=== PATIENT | female | born 1990 | race Two or more races ===

== ENCOUNTER 2022-12-17 09:53 | Outpatient (OUT) | payer BC, SELFPAY ==
[2022-12-17 11:02] LABS: Thyroid Stimulating Hormone 1.601 uIU/mL (0.358-3.740)
[2022-12-18 06:08] LABS: HIV Ab/p24 Ag Screen Non Reactive (Non Reactive)
== END 2022-12-17 09:54 ==
LOC: LAB 09:57
PROVIDERS: PCP Nurse Practitioner Primary Care; Visit Provider Nurse Practitioner Primary Care
DX: E06.3 Autoimmune thyroiditis (principal)
CPT/HCPCS: 36415; 84443; 87389

== ENCOUNTER 2023-04-16 10:16 | Outpatient (OUT) | payer BC, SELFPAY ==
[2023-04-16 10:50] LABS: Basophils Absolute Auto 0.1 10^3/uL (0.0-0.1); Eosinophils Absolute Auto 0.2 10^3/uL (0.0-0.7); Eosinophils Percent Auto 2.3 % (0.9-7.0); Hematocrit 37.1 % (36.0-48.0); Hemoglobin 11.9 g/dL (12.0-16.0); Immature Granulocytes Abs Auto 0.03 10^3/uL (0.00-0.03); Immature Granulocytes Pct Auto 0.4 % (0.0-0.5); Lymphocytes Absolute Auto 2.2 10^3/uL (1.2-3.8); Lymphocytes Percent Auto 26.2 % (20.5-60.0); Mean Corpuscular HGB Conc 32.1 g/dL (29.9-35.2); Mean Corpuscular Hemoglobin 27.4 pg (26.7-34.0); Mean Corpuscular Volume 85.3 fL (81.0-99.0); Mean Platelet Volume 8.4 fL (9.5-13.5); Monocytes Absolute Auto 0.6 10^3/uL (0.3-0.8); Monocytes Percent Auto 7.2 % (1.7-12.0); Neutrophils Absolute Auto 5.3 10^3/uL (1.4-6.5); Neutrophils Percent Auto 62.9 % (43.0-75.0); Platelet Count 484 10^3/uL (150-450); Red Blood Count 4.35 10^6/uL (4.20-5.40); Red Cell Distribution Width 13.6 % (11.0-15.0); White Blood Count 8.4 10^3/uL (4.0-11.0)
[2023-04-16 11:24] LABS: Alanine Aminotransferase 15 U/L (14-59); Albumin Level 3.6 g/dL (3.4-5.0); Alkaline Phosphatase 80 U/L (46-116); Anion Gap 11.7; Aspartate Amino Transferase 22 U/L (15-37); BUN Creatinine Ratio 15.4; Bilirubin Total 0.4 mg/dL (0.2-1.0); Calcium 8.8 mg/dL (8.5-10.1); Carbon Dioxide 23.7 mmol/L (21.0-32.0); Chloride 106 mmol/L (98-107); Chol HDL Ratio 2.7; Cholesterol 162 mg/dL (<=200); Estimated GFR (African America >60 (>=60); Estimated GFR (Non-African Ame >60 (>=60); Globulin 3.5 g/dL; Glucose 89 mg/dL (74-106); HDL Cholesterol 59 mg/dL (40-60); LDL Cholesterol Calculated 85.4 mg/dL; Potassium 4.4 mmol/L (3.5-5.1); Sodium 137 mmol/L (136-145); Total Protein 7.1 g/dL (6.4-8.2); Triglycerides 88 mg/dL (<=150); VLDL CHOLESTEROL 17.6 mg/dL
[2023-04-16 11:26] LABS: Estimated Average Glucose 100 mg/dL; Glycohemoglobin A1C 5.1 % (4.5-6.2)
[2023-04-17 06:09] LABS: HIV Ab/p24 Ag Screen Non Reactive (Non Reactive)
== END 2023-04-16 10:17 | disposition home or self-care (01) ==
PROVIDERS: PCP Nurse Practitioner Primary Care; Visit Provider Nurse Practitioner Primary Care
DX: Z00.00 Encounter for general adult medical examination without abnormal findings (principal); Z13.6 Encounter for screening for cardiovascular disorders; Z11.4 Encounter for screening for human immunodeficiency virus [HIV]
CPT/HCPCS: 36415; 80053; 80061; 83036; 85025; 87389

== ENCOUNTER 2023-09-17 09:20 | Outpatient (OUT) | payer BC, SELFPAY ==
[2023-09-17 10:30] LABS: Thyroid Stimulating Hormone 7.713 uIU/mL (0.358-3.740)
== END 2023-09-17 09:21 | disposition home or self-care (01) ==
LOC: LAB 09:22
PROVIDERS: PCP Nurse Practitioner Primary Care; Visit Provider Nurse Practitioner Primary Care
DX: E06.3 Autoimmune thyroiditis (principal)
CPT/HCPCS: 36415; 84443

== ENCOUNTER 2023-11-26 09:21 | Outpatient (OUT) | payer BC, SELFPAY ==
[2023-11-26 11:13] LABS: TSH W/ REFLEX FT4 3.288 uIU/mL (0.358-3.740)
== END 2023-11-26 09:22 | disposition home or self-care (01) ==
LOC: LAB 09:23
PROVIDERS: PCP Nurse Practitioner; Visit Provider Nurse Practitioner
DX: E06.3 Autoimmune thyroiditis (principal)
CPT/HCPCS: 36415; 84443

== ENCOUNTER 2024-01-06 09:38 | Outpatient (OUT) | payer BC, SELFPAY ==
--- OUTSIDE RECORDS SUMMARY | 2024-01-06 09:51 | XMS_ITS | CCD ---
Author Organization [facility] Care Team Providers Care Identity Management Developer Name Role Phone SHAMMO, RED Admitting Unavailable SHAMMO, RED Primary Care Unavailable SHAMMO, RED Attending Unavailable ZIEBER, DR ANGEL LUIS Gloria Consulting Unavailable SHAMMO, RED Admitting Unavailable SHAMMO, RED Primary Care Unavailable SHAMMO, RED Attending Unavailable SHAMMO, RDE Consulting Unavailable SHAMMO, RED Admitting Unavailable SHAMMO, RED Primary Care Unavailable SHAMMO, RED Consulting Unavailable SHAMMO, RED Attending Unavailable MISC, DOCTOR Admitting Unavailable MISC, DR BROWN Consulting Unavailable MISC, DOCTOR Attending Unavailable SHAMMO, RED Admitting Unavailable SHAMMO, RED Primary Care Unavailable SHAMMO, RED Consulting Unavailable SHAMMO, RED Attending Unavailable SHAMMO, RED Admitting Unavailable SHAMMO, RED Primary Care Unavailable SHAMMO, RED Consulting Unavailable SHAMMO, RED Attending Unavailable SHAMMO, RED Admitting Unavailable ZIEBER, DR ANGEL LUIS Gloria Consulting Unavailable SHAMMO, RED Primary Care Unavailable SHAMMO, RED Attending Unavailable SHAMMO, RED Consulting Unavailable Shammo, MANAGER QA- Red T Primary Care Provider DO Wendy Frazier Emergency Provider Wendy Frazier Attending Unavailable Wendy Frazier Admitting Unavailable Shammo, Red T Primary Care Unavailable Allergies Allergy Classification Reported Allergen(s) Allergy Type Date of Onset Reaction(s) Facility (1 source) Pseudoephedrine Drug Allergy [address] [place] [address] Repository Medications Current Medications Medication Drug Class(es) Dates Sig (Normalized) Sig (Original) levothyroxine sodium 0.088 mg oral tablet (1 source) l-Thyroxine Start: 08-11-2023 take 88 ug by mouth once daily Levothyroxine Active 88 MCG PO Daily August 11, 2023 12:00am ondansetron 4 mg oral tablet (1 source) Serotonin-3 Receptor Antagonist Start: 08-11-2023 take 4 mg by mouth every eight hours Ondansetron Hcl Active 4 MG PO Q8H 20 5 August 11, 2023 12:00am rizatriptan 5 mg oral tablet (1 source) Serotonin-1b and Serotonin-1d Receptor Agonist Start: 08-11-2023 Rizatriptan Active 5 MG PO As Directed August 11, 2023 12:00am topiramate 50 mg oral tablet (1 source) Start: 08-11-2023 take 50 mg by mouth every twelve hours Topiramate Active 50 MG PO Q12H August 11, 2023 12:00am Problems Active Problems Problem Classification Problem Date Documented Da te Episodic/Chronic Abdominal pain (1 source) Abdominal pain; Translations: [Unspecified abdominal pain] 08-11-2023 Episodic Nausea and vomiting (1 source) Nausea and vomiting; Translations: [Nausea with vomiting, unspecified] 08-11-2023 Episodic Other gastrointestinal disorders (1 source) Diarrhea; Translations: [Diarrhea, unspecified] 08-11-2023 Episodic Other skin disorders (4 sources) Localized swelling, mass and lump, neck; Translations: [LOCALIZED SWELLING MASS AND LUMP NECK] Onset: 11-06-2022 Episodic Thyroid disorders (12 sources) Nontoxic single thyroid nodule; Translations: [Autoimmune thyroiditis] Onset: 04-03-2022 Chronic Unclassified (3 sources) CONTACT W/AND (SUSP) EXPOS COVID-19; Translations: [CONTACT W/AND (SUSP) EXPOS COVID-19] Onset: 07-10-2022 Unclassified (1 source) Diarrhea, unspecified; Translations: [Diarrhea, unspecified] Onset: 08-11-2023 Past or Other Problems Problem Classification Problem Date Documented Date Episodic/Chronic Immunizations and screening for infectious disease (1 source) Encounter for screening for other viral diseases; Translations: [ENC SCREENING FOR OTH VIRAL DZ] Onset: 04-17-2022 Episodic Other screening for suspected conditions (not mental disorders or infectious disease) (1 source) Encounter for screening for cardiovascular disorders; Translations: [ENC FOR SCREENING FOR CV DISORDERS] Onset: 04-17-2022 Episodic Other upper respiratory infections (1 source) Acute upper respiratory infection, unspecified; Translations: [ACUTE UP RESPIRATORY INFECTION UNS] Onset: 07-10-2022 Episodic Residual codes; unclassified (1 source) Other general symptoms and signs; Translations: [OTHER GENERAL SYMPTOMS AND SIGNS] Onset: 06-29-2022 Episodic Unclassified (1 source) CONTACT W/AND (SUSP) EXPOS COVID-19; Translations: [CONTACT W/AND (SUSP) EXPOS COVID-19] Onset: 07-03-2022 Results Test Name Value Interpretation Reference Range Facility Alanine aminotransferase [En zymatic activity/volume] in Serum or PlasmaOrdered By: Wendy Frazier on 08-11-2023 ALT [Catalytic activity/Vol] 9 U/L 7-52 [facility] Albumin [Mass/volume] in Ser um or Plasma by Bromocresol green (BCG) dye binding methoOrdered By: Wendy Frazier on 08-11-2023 Albumin BCG dye [Mass/Vol] 4.5 g/dL 3.5-5.7 [facility] Alkaline phosphatase [Enzyma tic activity/volume] in Serum or PlasmaOrdered By: Wendy Frazier on 08-11-2023 ALP [Catalytic activity/Vol] 86 U/L 34-104 [facility] Aspartate aminotransferase [ Enzymatic activity/volume] in Serum or PlasmaOrdered By: Wendy Frazier on 08-11-2023 AST [Catalytic activity/Vol] 12 U/L 13-39 [facility] Basic Metabolic Panelon 07-15 Anion gap [Moles/Vol] 10.1 mmol/L Normal 6.0-15.0 [facility] Comment on above: Performed By: #### H EPATIC, CBC, BMP, LIPASE, HCGQUAL #### [facility] [address] [place] [address] [place] Calcium [Mass/Vol] 9.6 mg/dL Normal 8.6-10.3 [facility] Comment on above: Performed By: #### H EPATIC, CBC, BMP, LIPASE, HCGQUAL #### [facility] [address] [place] [id number] [place] Chloride [Moles/Vol] 109 mmol/L High 98-107 [facility] Comment on above: Performed By: #### H EPATIC, CBC, BMP, LIPASE, HCGQUAL #### [address] CO2 [Moles/Vol] 21.5 mmol/L Normal 21.0-31.0 [facility] Comment on above: Performed By: #### H EPATIC, CBC, BMP, LIPASE, HCGQUAL #### [address] Creatinine [Mass/Vol] 0.75 mg/dL Normal 0.60-1.20 [facility] Comment on above: Performed By: #### H EPATIC, CBC, BMP, LIPASE, HCGQUAL #### [address] Creatinine Clr Calc Pharmacy 130.05 [facility] Comment on above: Performed By: #### H EPATIC, CBC, BMP, LIPASE, HCGQUAL #### [address] GFR/1.73 sq M.predicted MDRD (S/P/Bld) [Vol rate/Area] mL/min/{1.73_m2} [facility] Comment on above: Performed By: #### H EPATIC, CBC, BMP, LIPASE, HCGQUAL #### [address] Glucose [Mass/Vol] 92 mg/dL Normal 70-100 [facility] Comment on above: Result Comment: [place] Glucose Reference Range is dependent on time and content of last meal. Glucose of more than 200 mg/dL in a nonstressed, ambulatory subject supports the diagnosis of Diabetes Mellitus. ADA recommended reference range Performed By: #### H EPATIC, CBC, BMP, LIPASE, HCGQUAL #### [address] Potassium [Moles/Vol] 4.6 mmol/L Normal 3.5-5.1 [facility] Comment on above: Performed By: #### H EPATIC, CBC, BMP, LIPASE, HCGQUAL #### [facility] [address] [place] [id number] [place] Sodium [Moles/Vol] 136 mmol/L Normal 136-145 [facility] Comment on above: Performed By: #### H EPATIC, CBC, BMP, LIPASE, HCGQUAL #### [facility] [address] [place] [id number] [facility] Urea nitrogen [Mass/Vol] 11 mg/dL Normal 7-25 [facility] Comment on above: Performed By: #### H EPATIC, CBC, BMP, LIPASE, HCGQUAL #### [facility] [address] Basophils Auto (Bld) [#/Vol] Ordered By: Wendy Frazier on 08-11-2023 Basophils (Bld) [#/Vol] 0.1 10*3/uL 0.0-0.2 [facility] Basophils/100 WBC Auto (Bld) Ordered By: Wendy Frazier on 08-11-2023 Basophils/100 WBC (Bld) 1.1 % . [facility] Bilirubin Test strip Ql (U)O rdered By: Wendy Frazier on 08-11-2023 Bilirubin Ql (U) Negative Negative [facility] Bilirubin.direct [Mass/volum e] in Serum or PlasmaOrdered By: Wendy Frazier on 08-11-2023 Bilirubin.direct [Mass/Vol] 0.10 mg/dL 0.03-0.18 [facility] Bilirubin.total [Mass/volume ] in Serum or PlasmaOrdered By: Wendy Frazier on 08-11-2023 Bilirubin [Mass/Vol] 0.3 mg/dL 0.3-1.0 [facility] Calcium [Mass/volume] in Ser um or PlasmaOrdered By: Wendy Frazier on 08-11-2023 Calcium [Mass/Vol] 9.6 mg/dL 8.6-10.3 [facility] Carbon dioxide, total [Moles /volume] in Serum or PlasmaOrdered By: Wendy Frazier on 08-11-2023 CO2 [Moles/Vol] 21.5 mmol/L 21.0-31.0 [facility] Chloride [Moles/volume] in S rodolfo or PlasmaOrdered By: Wendy Frazier on 08-11-2023 Chloride [Moles/Vol] 109 mmol/L 98-107 [facility] Choriogonadotropin.beta subu nit [Units/volume] in Serum or PlasmaOrdered By: Wendy Frazier on 08-11-2023 HCG.beta subunit Qn Negative [facility] Color Auto (U)Ordered By: Balaji Frazier on 08-11-2023 Color (U) Yellow Yellow [facility] Complete Blood Count Auto Di ffon 08-11-2023 Basophils (Bld) [#/Vol] 0.1 10*3/uL Normal 0.0-0.2 [facility] Comment on above: Result Comment: PERF ORMED BY: [place] [address] PATHOLOGIST BOARD FINISHER GLADYS RUBY M.D. Performed By: #### H EPATIC, CBC, BMP, LIPASE, HCGQUAL #### [address] Basophils/100 WBC (Bld) 1.1 % Normal . [facility] Comment on above: Performed By: #### H EPATIC, CBC, BMP, LIPASE, HCGQUAL #### [address] Eosinophils (Bld) [#/Vol] 0.2 10*3/uL Normal 0.0-0.45 [facility] Comment on above: Performed By: #### H EPATIC, CBC, BMP, LIPASE, HCGQUAL #### [address] Eosinophils/100 WBC (Bld) 1.3 % Normal . [facility] Comment on above: Performed By: #### H EPATIC, CBC, BMP, LIPASE, HCGQUAL #### [address] Erythrocyte distribution width (RBC) [Ratio] 14.1 % Normal 11.9-15.3 [facility] Comment on above: Performed By: #### H EPATIC, CBC, BMP, LIPASE, HCGQUAL #### [address] Hematocrit (Bld) [Volume fraction] 40.6 % Normal 34.0-46.4 [facility] Comment on above: Performed By: #### H EPATIC, CBC, BMP, LIPASE, HCGQUAL #### [address] Hemoglobin (Bld) [Mass/Vol] 13.3 g/dL Normal 11.8-15.4 [facility] Comment on above: Performed By: #### H EPATIC, CBC, BMP, LIPASE, HCGQUAL #### [address] Lymphocytes (Bld) [#/Vol] 1.8 10*3/uL Normal 1.00-4.8 [facility] Comment on above: Performed By: #### H EPATIC, CBC, BMP, LIPASE, HCGQUAL #### [address] Lymphocytes/100 WBC (Bld) 13.3 % Normal . [facility] Comment on above: Performed By: #### H EPATIC, CBC, BMP, LIPASE, HCGQUAL #### [address] MCH (RBC) [Entitic mass] 27.2 pg Normal 24.7-34.3 [facility] Comment on above: Performed By: #### H EPATIC, CBC, BMP, LIPASE, HCGQUAL #### [address] MCV (RBC) [Entitic vol] 82.9 fL Normal 80-100 [facility] Comment on above: Performed By: #### H EPATIC, CBC, BMP, LIPASE, HCGQUAL #### [address] Mean Corpuscular HGB Conc 32.9 g/dL Normal 32.0-35.0 [facility] Comment on above: Performed By: #### H EPATIC, CBC, BMP, LIPASE, HCGQUAL #### [address] Monocytes (Bld) [#/Vol] 0.9 10*3/uL High 0.0-0.8 [facility] Comment on above: Performed By: #### H EPATIC, CBC, BMP, LIPASE, HCGQUAL #### [address] Monocytes/100 WBC (Bld) 16.34 % Normal 0.00-20.00 [facility] Comment on above: Performed By: #### H EPATIC, CBC, BMP, LIPASE, HCGQUAL #### [address] Monocytes/100 WBC (Bld) 7.0 % Normal . [facility] Comment on above: Performed By: #### H EPATIC, CBC, BMP, LIPASE, HCGQUAL #### [address] Neutrophils (Bld) [#/Vol] 10.3 10*3/uL High 1.8-7.7 [facility] Comment on above: Performed By: #### H EPATIC, CBC, BMP, LIPASE, HCGQUAL #### [address] Neutrophils/100 WBC (Bld) 77.3 % Normal . [facility] Comment on above: Performed By: #### H EPATIC, CBC, BMP, LIPASE, HCGQUAL #### [address] NRBC% 0.1 /100{WBC} Normal 0-0.5 [facility] Comment on above: Performed By: #### H EPATIC, CBC, BMP, LIPASE, HCGQUAL #### [address] Platelet mean volume (Bld) [Entitic vol] 6.7 fL Normal 6.3-10.7 [facility] Comment on above: Performed By: #### H EPATIC, CBC, BMP, LIPASE, HCGQUAL #### [facility] [address] Platelets (Bld) [#/Vol] 560 10*3/uL High 150-450 [facility] Comment on above: Performed By: #### H EPATIC, CBC, BMP, LIPASE, HCGQUAL #### [facility] [address] RBC (Bld) [#/Vol] 4.90 10*6/uL Normal 3.60-5.00 [facility] Comment on above: Performed By: #### H EPATIC, CBC, BMP, LIPASE, HCGQUAL #### [facility] [address] WBC (Bld) [#/Vol] 13.2 10*3/uL High 3.8-11.6 [facility] Comment on above: Performed By: #### H EPATIC, CBC, BMP, LIPASE, HCGQUAL #### [facility] [address] Creatinine [Mass/volume] in Serum or PlasmaOrdered By: Wendy Frazier on 08-11-2023 Creatinine [Mass/Vol] 0.75 mg/dL 0.60-1.20 [facility] Eosinophils Auto (Bld) [#/Vo l]Ordered By: Wendy Frazier on 08-11-2023 Eosinophils (Bld) [#/Vol] 0.2 10*3/uL 0.0-0.45 [facility] Eosinophils/100 WBC Auto (Bl d)Ordered By: Wendy Frazier on 08-11-2023 Eosinophils/100 WBC (Bld) 1.3 % . [facility] Erythrocyte distribution wid th Auto (RBC) [Ratio]Ordered By: Wendy Frazier on 08-11-2023 Erythrocyte distribution width (RBC) [Ratio] 14.1 % 11.9-15.3 [facility] Globulin Calc (S) [Mass/Vol] Ordered By: Wendy Frazier on 08-11-2023 Globulin (S) [Mass/Vol] 2.8 g/dL [facility] Glucose [Mass/volume] in Ser um or PlasmaOrdered By: Wendy Frazier on 08-11-2023 Glucose [Mass/Vol] 92 mg/dL 70-100 [facility] Comment on above: ADA recommended refe rence rangeRandom Glucose Reference Range is dependent on time and content of last meal. Glucose of more than 200 mg/dL in a nonstressed, ambulatory subject supports the diagnosis of Diabetes Mellitus. HCG,Qualitative Serumon 07-15 HCG,Qualitative Serum Negative Normal [facility] Comment on above: Result Comment: PERF ORMED BY: [place] [address] PATHOLOGIST BOARD FINISHER GLADYS RUBY M.D. Performed By: #### H EPATIC, CBC, BMP, LIPASE, HCGQUAL #### [address] Hematocrit Auto (Bld) [Volum e fraction]Ordered By: Wendy Frazier on 08-11-2023 Hematocrit (Bld) [Volume fraction] 40.6 % 34.0-46.4 [facility] Hemoglobin [Mass/volume] in BloodOrdered By: Wendy Frazier on 08-11-2023 Hemoglobin (Bld) [Mass/Vol] 13.3 g/dL 11.8-15.4 [facility] Hepatic Panelon 08-11-2023 Albumin [Mass/Vol] 4.5 g/dL Normal 3.5-5.7 [facility] Comment on above: Performed By: #### H EPATIC, CBC, BMP, LIPASE, HCGQUAL #### [facility] [address] [place] [address] Albumin/Globulin [Mass ratio] 1.6 {ratio} Normal [facility] Comment on above: Performed By: #### H EPATIC, CBC, BMP, LIPASE, HCGQUAL #### [facility] [address] [place] [address] ALP [Catalytic activity/Vol] 86 U/L Normal 34-104 [facility] Comment on above: Performed By: #### H EPATIC, CBC, BMP, LIPASE, HCGQUAL #### [address] ALT [Catalytic activity/Vol] 9 U/L Normal 7-52 [facility] Comment on above: Performed By: #### H EPATIC, CBC, BMP, LIPASE, HCGQUAL #### [address] AST [Catalytic activity/Vol] 12 U/L Low 13-39 [facility] Comment on above: Performed By: #### H EPATIC, CBC, BMP, LIPASE, HCGQUAL #### [address] Bilirubin [Mass/Vol] 0.3 mg/dL Normal 0.3-1.0 [facility] Comment on above: Performed By: #### H EPATIC, CBC, BMP, LIPASE, HCGQUAL #### [address] Bilirubin,Indirect 0.2 mg/dL Normal [facility] Comment on above: Performed By: #### H EPATIC, CBC, BMP, LIPASE, HCGQUAL #### [address] Bilirubin.indirect [Mass/Vol] 0.10 mg/dL Normal 0.03-0.18 [facility] Comment on above: Performed By: #### H EPATIC, CBC, BMP, LIPASE, HCGQUAL #### [address] Globulin (S) [Mass/Vol] 2.8 g/dL Normal [facility] Comment on above: Performed By: #### H EPATIC, CBC, BMP, LIPASE, HCGQUAL #### [address] Protein [Mass/Vol] 7.3 g/dL Normal 6.4-8.9 [facility] Comment on above: Performed By: #### H EPATIC, CBC, BMP, LIPASE, HCGQUAL #### [address] Ketones Auto test strip (U) [Mass/Vol]Ordered By: Wendy Frazier on 08-11-2023 Ketones (U) [Mass/Vol] Negative Negative Fi [facility] Leukocytes [#/volume] correc nina for nucleated erythrocytes in Blood by Automated counOrdered By: Wendy Frazier on 08-11-2023 WBC corrected for nucl RBC Auto (Bld) [#/Vol] 13.2 10*3/uL 3.8-11.6 [facility] Lipaseon 08-11-2023 Lipase [Catalytic activity/Vol] 23.0 U/L Normal 11.0-82.0 [facility] Comment on above: Performed By: #### H EPATIC, CBC, BMP, LIPASE, HCGQUAL #### [facility] [address] Lipase [Enzymatic activity/v olume] in Serum or PlasmaOrdered By: Wendy Frazier on 08-11-2023 Lipase [Catalytic activity/Vol] 23.0 U/L 11.0-82.0 [facility] Lymphocytes Auto (Bld) [#/Vo l]Ordered By: Wendy Frazier on 08-11-2023 Lymphocytes (Bld) [#/Vol] 1.8 10*3/uL 1.00-4.8 [facility] Lymphocytes/100 WBC Auto (Bl d)Ordered By: Wendy Frazier on 08-11-2023 Lymphocytes/100 WBC (Bld) 13.3 % . [facility] MCH Auto (RBC) [Entitic mass ]Ordered By: Wendy Frazier on 08-11-2023 MCH (RBC) [Entitic mass] 27.2 pg 24.7-34.3 [facility] MCHC Auto (RBC) [Mass/Vol]Or dered By: Wendy Frazier on 08-11-2023 MCHC (RBC) [Mass/Vol] 32.9 g/dL 32.0-35.0 [facility] MCV Auto (RBC) [Entitic vol] Ordered By: Wendy Frazier on 08-11-2023 MCV (RBC) [Entitic vol] 82.9 fL 80-100 [facility] Monocyte distribution width [Entitic volume] in Blood by AutomatedOrdered By: Wendy Frazier on 08-11-2023 Monocyte distribution width Auto (Bld) [Entitic vol] 16.34 % 0.00-20.00 [facility] Monocytes Auto (Bld) [#/Vol] Ordered By: Wendy Frazier on 08-11-2023 Monocytes (Bld) [#/Vol] 0.9 10*3/uL 0.0-0.8 [facility] Monocytes/100 WBC Auto (Bld) Ordered By: Wendy Frazier on 08-11-2023 Monocytes/100 WBC (Bld) 7.0 % . [facility] Neutrophils Auto (Bld) [#/Vo l]Ordered By: Wendy Frazier on 08-11-2023 Neutrophils (Bld) [#/Vol] 10.3 10*3/uL 1.8-7.7 [facility] Neutrophils/100 WBC Auto (Bl d)Ordered By: Wendy Frazier on 08-11-2023 Neutrophils/100 WBC (Bld) 77.3 % . [facility] Nitrite Test strip Ql (U)Ord ered By: Wendy Frazier on 08-11-2023 Nitrite Ql (U) Negative Negative [facility] No Panel InformationOrdered By: Wendy Frazier on 08-11-2023 Estimated GFR (CKD-EPI) > 60.0 mL/Min [facility] Creatinine Clearance (Chem 130.05 [facility] Nucleated erythrocytes [Pres ence] in Blood by Automated countOrdered By: Wendy Frazier on 08-11-2023 Nucleated RBC Auto Ql (Bld) 0.1 /100{WBC} 0-0.5 [facility] Platelet mean volume Auto (B ld) [Entitic vol]Ordered By: Wendy Frazier on 08-11-2023 Platelet mean volume (Bld) [Entitic vol] 6.7 fL 6.3-10.7 [facility] Platelets Auto (Bld) [#/Vol] Ordered By: Wendy Frazier on 08-11-2023 Platelets (Bld) [#/Vol] 560 10*3/uL 150-450 [facility] Potassium [Moles/volume] in Serum or PlasmaOrdered By: Wendy Frazier on 08-11-2023 Potassium [Moles/Vol] 4.6 mmol/L 3.5-5.1 [facility] Protein Auto test strip (U) [Mass/Vol]Ordered By: Wendy Frazier on 08-11-2023 Protein (U) [Mass/Vol] Negative Negative [facility] Protein [Mass/volume] in Ser um or PlasmaOrdered By: Wendy Frazier on 08-11-2023 Protein [Mass/Vol] 7.3 g/dL 6.4-8.9 [facility] RBC Auto (Bld) [#/Vol]Ordere d By: Wendy Frazier on 08-11-2023 RBC (Bld) [#/Vol] 4.90 10*6/uL 3.60-5.00 [facility] Serum or plasma albumin/glob ulin mass ratioOrdered By: Wendy Frazier on 08-11-2023 Albumin/Globulin [Mass ratio] 1.6 {ratio} [facility] Serum or plasma anion gap de terminationOrdered By: Wendy Frazier on 08-11-2023 Anion gap [Moles/Vol] 10.1 mmol/L 6.0-15.0 [facility] Serum or plasma non-glucuron idated bilirubin measurement (mass/volume)Ordered By: Wendy Frazier on 08-11-2023 Bilirubin.indirect [Mass/Vol] 0.2 mg/dL [facility] Sodium [Moles/volume] in Ser um or PlasmaOrdered By: Wendy Frazier on 08-11-2023 Sodium [Moles/Vol] 136 mmol/L 136-145 [facility] Specific gravity Auto test s trip (U) [Rel density]Ordered By: Wendy Frazier on 08-11-2023 Specific gravity (U) [Rel density] 1.022 1.001-1.030 [facility] Urea nitrogen [Mass/volume] in Serum or PlasmaOrdered By: Wendy Frazier on 08-11-2023 Urea nitrogen [Mass/Vol] 11 mg/dL 7-25 [facility] Urinalysison 08-11-2023 Appearance (U) Clear Normal Clear [facility] Comment on above: Order Comment: Name Collection Type:: Voided Performed By: #### U A #### [facility] [address] [place] [address] Bilirubin,Urine Negative Normal Negative [facility] Comment on above: Order Comment: Name Collection Type:: Voided Performed By: #### U A #### [facility] [address] [place] [address] Color (U) Yellow Normal Yellow [facility] Comment on above: Order Comment: Name Collection Type:: Voided Performed By: #### U A #### [facility] [address] [place] [address] Glucose Ql (U) Normal Normal Normal [facility] Comment on above: Order Comment: Name Collection Type:: Voided Performed By: #### U A #### [address] Ketones Ql (U) Negative Normal Negative [facility] Comment on above: Order Comment: Name Collection Type:: Voided Performed By: #### U A #### [address] Leukocyte esterase Test strip Ql (U) Negative Normal Negative [facility] Comment on above: Order Comment: Name Collection Type:: Voided Performed By: #### U A #### [facility] [address] [place] [address] Nitrite,Urine Negative Normal Negative [facility] Comment on above: Order Comment: Name Collection Type:: Voided Performed By: #### U A #### [address] Occult Blood,Urine Negative Normal Negative [facility] Comment on above: Order Comment: Name Collection Type:: Voided Result Comment: PERF ORMED BY: [place] [address] PATHOLOGIST BOARD FINISHER GLADYS RUBY M.D. Performed By: #### U A #### [address] pH (U) 5.0 [pH] Normal 5.0-9.0 [facility] Comment on above: Order Comment: Name Collection Type:: Voided Performed By: #### U A #### [facility] [address] [place] [address] Protein,Urine Negative Normal Negative [facility] Comment on above: Order Comment: Name Collection Type:: Voided Performed By: #### U A #### [facility] [address] [place] [address] Specificy [place],Urine 1.022 Normal 1.001-1.030 [facility] Comment on above: Order Comment: Name Collection Type:: Voided Performed By: #### U A #### [facility] [address] [place] [address] Urobilinogen,Urine Normal Normal Normal [facility] Comment on above: Order Comment: Name Collection Type:: Voided Performed By: #### U A #### [facility] [address] [place] [address] Urine clarity by refractomet ry automatedOrdered By: Wendy Frazier on 08-11-2023 Clarity Refractometry automated (U) Clear Clear [facility] Urine glucose measurement by automated test strip (mass/volume)Ordered By: Wendy Frazier on 08-11-2023 Glucose Auto test strip (U) [Mass/Vol] Normal mg/dL Normal [facility] Urine hemoglobin detection b y automated test stripOrdered By: Wendy Frazier on 08-11-2023 Hemoglobin Auto test strip Ql (U) Negative Negative [facility] Urine leukocyte esterase det ection by automated test stripOrdered By: Wendy Frazier on 08-11-2023 Leukocyte esterase Auto test strip Ql (U) Negative Negative [facility] Urobilinogen Auto test strip (U) [Mass/Vol]Ordered By: Wendy Frazier on 08-11-2023 Urobilinogen (U) [Mass/Vol] Normal mg/dL Normal [facility] WBC Auto (Bld) [#/Vol]Ordere d By: Wendy Frazier on 08-11-2023 WBC (Bld) [#/Vol] 13.2 10*3/uL 3.8-11.6 [facility] pH Auto test strip (U)Ordere d By: Wendy Frazier on 08-11-2023 pH (U) 5.0 [pH] 5.0-9.0 [facility] [address] NECK ST W CONon [address] W CON EXAMINATION: CT NECK ST W CON HISTORY: Mass of neck ; sore throat for several weeks COMPARISON: No relevant comparison available. TECHNIQUE: Axial, Coronal, and Sagittal CT images created with IV contrast. Dose reduction techniques were achieved by using automated exposure control and/or adjustment of mA and/or kV according to patient size and/or use of iterative reconstruction technique. FINDINGS: NASOPHARYNX: No asymmetry of the fossae of Rosenmuller and torus tubarius. ORAL CAVITY: No visible mass. OROPHARYNX: No asymmetry of the facial and lingual tonsils. HYPOPHARYNX: No mass or other visible lesion. LARYNX: No mass or asymmetry of the vocal cords. SINUSES: Marked mucosal thickening within the paranasal sinuses. NECK GLADS: Slightly heterogeneous and prominent left thyroid lobe. Unremarkable parotid and salivary glands. LYMPH NODES: No pathological-appea ring or enlarged lymph nodes. VASCULATURE: No suspicious abnormality. BONES: No significant osseous lesions. OTHER: No additional imaging findings. IMPRESSION: 1. No inflammatory changes or suspicious findings of the parapharyngeal soft tissues. 2. No lymphadenopathy. 3. Heterogeneous slightly prominent left thyroid lobe. 4. Paranasal marked pansinusitis; chronic. No fluid levels to suggest acute sinusitis sinusitis. Electronically authenticated by: ANGEL LUIS ALEJANDRA Date: 2022-11-06 09:31 Normal [facility] RESPIRATORY PANEL PLUSon Adenovirus Not detected Normal NOT DETECTED [facility] Comment on above: Performed By: #### R SPLUS #### [facility] Laboratory [address] [address] [address] Hubert Stearns. Parapertusis Not detected Normal NOT DETECTED [facility] Comment on above: Performed By: #### R SPLUS #### [facility] [address] [address] [address] Hubert Carlson Pertussis Not detected Normal NOT DETECTED [facility] Comment on above: Performed By: #### R SPLUS #### [facility] [address] [address] [address] Hubert Novak Chlamydia Pneumoniae Not detected Normal NOT DETECTED [facility] Comment on above: Performed By: #### R SPLUS #### [facility] [address] [place] [address] Dr. Hubert Novak Coronavirus 229E Not detected Normal NOT DETECTED [facility] Comment on above: Performed By: #### R SPLUS #### [facility] [address] [place] [address] Dr. Hubert Novak Coronavirus HKU1 Not detected Normal NOT DETECTED [facility] Comment on above: Performed By: #### R SPLUS #### [facility] [address] [address] [address] Hubert Novak Coronavirus NL63 Not detected Normal NOT DETECTED [facility] Comment on above: Performed By: #### R SPLUS #### [facility] [address] [place] [address] Dr. Hubert Novak Coronavirus OC43 Not detected Normal NOT DETECTED [facility] Comment on above: Performed By: #### R SPLUS #### [facility] [address] [place] [address] Dr. Hubert Novak Influenza A H1 2009 Not detected Normal NOT DETECTED [facility] Comment on above: Performed By: #### R SPLUS #### [facility] [address] [place] [address] Dr. Hubert Novak Influenza A H3 Not detected Normal NOT DETECTED [facility] Comment on above: Performed By: #### R SPLUS #### [facility] [address] [place] [address] Dr. Hubert Novak Influenza B Not detected Normal NOT DETECTED [facility] Comment on above: Performed By: #### R SPLUS #### [facility] [address] [place] [address] Dr. Hubert Novak Metapneumovirus Not detected Normal NOT DETECTED [facility] Comment on above: Performed By: #### R SPLUS #### [facility] [address] [address] [address] Hubert Novak Mycoplas. Pneumoniae Not detected Normal NOT DETECTED [facility] Comment on above: Performed By: #### R SPLUS #### [facility] [address] [place] [address] Dr. Hubert Novak Parainfluenza 1 Not detected Normal NOT DETECTED [facility] Comment on above: Performed By: #### R SPLUS #### [facility] [address] [place] [address] Dr. Hubert Novak Parainfluenza 2 Not detected Normal NOT DETECTED [facility] Comment on above: Performed By: #### R SPLUS #### [facility] [address] [place] [address] Dr. Hubert Novak Parainfluenza 3 Not detected Normal NOT DETECTED [facility] Comment on above: Performed By: #### R SPLUS #### [facility] [address] [place] [address] Dr. Hubert Novak Parainfluenza 4 Not detected Normal NOT DETECTED [facility] Comment on above: Performed By: #### R SPLUS #### [facility] [address] [place] [address] Dr. Hubert Novak Rhino/Enterovirus Not detected Normal NOT DETECTED [facility] Comment on above: Performed By: #### R SPLUS #### [facility] [address] [place] [address] Dr. Hubert Novak RP2 Header 1 RESPIRATORY PANEL: VIRUSES Normal [facility] Comment on above: Performed By: #### R SPLUS #### [facility] [address] [place] [address] Dr. Hubert Novak RP2 Header 2 RESPIRATORY PANEL: BACTERIA Normal [facility] Comment on above: Performed By: #### R SPLUS #### [facility] [address] [place] [address] Dr. Hubert Novak RSV Not detected Normal NOT DETECTED [facility] Comment on above: Performed By: #### R SPLUS #### [facility] [address] [place] [address] Dr. Hubert Novak SARS-CoV-2 (COVID-19) RNA GILMAR+probe Ql (Unsp spec) Not detected Normal NOT DETECTED [facility] Comment on above: Performed By: #### R SPLUS #### [facility] [address] [address] [address] Hubert Novak FREE T3on 07-01-2022 FREE T3 2.15 pg/mlL Critically low 2.18-3.98 [facility] Comment on above: Performed By: #### T SH, FT3 #### [facility] [address] [address] [address] Hubert Novak FREE T4on 07-01-2022 Free T4 [Mass/Vol] 1.17 ng/dL Normal 0.76-1.46 [facility] Comment on above: Performed By: #### F T4 #### [facility] [address] [address] [address] Hubert Novak TSHon 07-01-2022 TSH 1.765 uIU/mL Normal 0.358-3.740 [facility] Comment on above: Performed By: #### T SH, FT3 #### [facility] [address] [address] [address] Hubert Novak US THYROIDon 06-26-2022 US THYROID EXAMINATION: US THYROID HISTORY: Autoimmune thyroiditis COMPARISON: No relevant comparison available. FINDINGS: RIGHT LOBE: Hypervascular and markedly heterogeneous thyroid lobe. Lobe size: 5.6 x 1.8 x 1.7 cm LEFT LOBE: Hypervascular and markedly heterogeneous thyroid lobe. Lobe size: 5.6 x 1.6 x 2.3 cm ISTHMUS: Heterogeneous, thickened, and contains a 0.8 cm solid, hyperechoic TR3 nodule. Thickness: 8 mm IMPRESSION: 1. Enlarged, hypervascular, and markedly heterogeneous thyroid lobe; possible thyroiditis. 2. Within the isthmus is an 8 mm TR 3 nodule. Consider follow-up imaging in 2 years. TR 3: TR3 (mildly suspicious): > 1.5 cm, follow-up ultrasound in 1, 3, and 5 years. > 2.5 cm, fine needle aspiration. Electronically authenticated by: ANGEL LUIS ALEJANDRA Date: 2022-06-26 21:57 Normal [facility] HEPATITIS C AB CASCADE TO QU ANT PCR GENOon 04-16-2022 HCV AB <0.1 Normal 0.0-0.9 [facility] Comment on above: Performed By: #### R SPLUS #### [facility] [address] [place] [address] Dr. Hubert Novak Interpretation: Comment Normal [facility] Comment on above: Result Comment: Nega tive Not infected with HCV, unless recent infection is suspected or other evidence exists to indicate HCV infection. Performed By: #### R SPLUS #### [facility] [address] [place] [address] Dr. Hubert Novak CBC AUTO DIFFon 04-15-2022 BASO # 0.1 103/ul Normal 0.0-0.1 [facility] Comment on above: Performed By: #### C BC #### [facility] [address] [place] [address] Dr. Hubert Novak Basophils/100 WBC (Bld) 0.8 % Normal 0.2-2.0 [facility] Comment on above: Performed By: #### C BC #### [facility] [address] [place] [address] Dr. Hubert Novak EO # 0.2 103/ul Normal 0.0-0.7 [facility] Comment on above: Performed By: #### C BC #### [facility] [address] [place] [address] Dr. Hubert Novak Eosinophils/100 WBC (Bld) 1.5 % Normal 0.9-7.0 [facility] Comment on above: Performed By: #### C BC #### [facility] [address] [place] [address] Dr. Hubert Novak Erythrocyte distribution width (RBC) [Ratio] 12.9 % Normal 11.0-15.0 [facility] Comment on above: Performed By: #### C BC #### [facility] [address] [place] [address] Dr. Hubert Novak Hematocrit (Bld) [Volume fraction] 39.2 % Normal 36.0-48.0 [facility] Comment on above: Performed By: #### C BC #### [facility] [address] [address] [address] Hubert Novak Hemoglobin (Bld) [Mass/Vol] 12.6 g/dL Normal 12.0-16.0 [facility] Comment on above: Performed By: #### C BC #### [facility] [address] [address] [address] Hubert Novak IG # 0.07 10e3/ul Critically high 0.00-0.03 [facility] Comment on above: Performed By: #### C BC #### [facility] [address] [address] [address] Hubert Novka IG % 0.6 % Critically high 0.0-0.5 [facility] Comment on above: Performed By: #### C BC #### [facility] [address] [place] [address] Dr. Hubert Novak LYMPH # 1.9 103/ul Normal 1.2-3.8 [facility] Comment on above: Performed By: #### C BC #### [facility] [address] [place] [address] Dr. Hubert Novak Lymphocytes/100 WBC (Bld) 16.1 % Critically low 20.5-6 0.0 [facility] Comment on above: Performed By: #### C BC #### [facility] [address] [place] [address] Dr. Hubert Novak MANUAL DIFF REQ NO Normal [facility] Comment on above: Performed By: #### C BC #### [facility] [address] [address] [address] Hubert Novak MCH (RBC) [Entitic mass] 27.1 pg Normal 26.7-34.0 [facility] Comment on above: Performed By: #### C BC #### [facility] [address] [place] [address] Dr. Hubert Novak MCHC (RBC) [Mass/Vol] 32.1 g/dL Normal 29.9-35.2 [facility] Comment on above: Performed By: #### C BC #### [facility] [address] [address] [address] Hubert Novak MCV (RBC) [Entitic vol] 84.3 fL Normal 81.0-99.0 [facility] Comment on above: Performed By: #### C BC #### [facility] [address] [place] [address] Dr. Hubert Novak MONO # 0.7 103/ul Normal 0.3-0.8 [facility] Comment on above: Performed By: #### C BC #### [facility] [address] [place] [address] Dr. Hubert Novak Monocytes/100 WBC (Bld) 5.9 % Normal 1.7-12.0 [facility] Comment on above: Performed By: #### C BC #### [facility] [address] [place] [address] Dr. Hubert Novak NEUT # 8.7 103/ul Critically high 1.4-6.5 [facility] Comment on above: Performed By: #### C BC #### [facility] [address] [place] [address] Dr. Hubert Novak Neutrophils/100 WBC (Bld) 75.1 % Critically high 43.0- 75.0 [facility] Comment on above: Performed By: #### C BC #### [facility] [address] [place] [address] Dr. Hubert Novak Platelet mean volume (Bld) [Entitic vol] 8.1 fL Critically low 9.5-13.5 [facility] Comment on above: Performed By: #### C BC #### [facility] [address] [place] [address] Dr. Hubert Novak PLT 493 103/ul Critically high 150-450 [facility] Comment on above: Performed By: #### C BC #### [facility] [address] [place] [address] Dr. Hubert Novak RBC 4.65 106/ul Normal 4.20-5.40 [facility] Comment on above: Performed By: #### C BC #### [facility] [address] [place] [address] Dr. Hubert Novak WBC 11.6 103/ul Critically high 4.0-11.0 [facility] Comment on above: Performed By: #### C BC #### [facility] [address] [address] [address] Hubert Novak GLYCOHEMOGLOBIN A1Con 2021 ADA RECOMMENDATION SEE BELOW Normal [facility] Comment on above: Result Comment: ADA RECOMMENDED LIMIT 4.0 - 6.0 ADA THERAPEUTIC TARGET < 7.0 ACTION SUGGESTED > 7.0 Performed By: #### A 1C #### [facility] [address] [address] [address] Hubert Novak Glucose [Mass/Vol] 100 mg/dL Normal [facility] Comment on above: Performed By: #### A 1C #### [facility] [address] [address] [address] Hubert Novak HbA1c (Bld) [Mass fraction] 5.1 % Normal 4.5-6.2 [facility] Comment on above: Performed By: #### A 1C #### [facility] [address] [address] [address] Hubert Novak LIPID PROFILEon 04-15-2022 CHOL-HDL RATIO NORM SEE BELOW Normal [facility] Comment on above: Result Comment: 3.3 - 4.4 LOW RISK 4.4 - 7.1 AVERAGE RISK 7.1 - 11.0 MODERATE RISK >11.0 HIGH RISK Performed By: #### R SPLUS #### [facility] [address] [address] [address] Hubert Novak Cholesterol [Mass/Vol] 171 mg/dL Normal <=200 [facility] Comment on above: Performed By: #### R SPLUS #### [facility] [address] [address] [address] Hubert Novak Cholesterol in HDL [Mass/Vol] 62 mg/dL Critically high 40-60 [facility] Comment on above: Performed By: #### R SPLUS #### [facility] [address] [address] [address] Hubert Novak Cholesterol in LDL [Mass/Vol] 89.8 mg/dL Normal [facility] Comment on above: Performed By: #### R SPLUS #### [facility] [address] [address] [address] Hubert Novak Cholesterol.total/Cholest jaxson in HDL [Mass ratio] 2.8 {ratio} Normal [facility] Comment on above: Performed By: #### R SPLUS #### [facility] [address] [address] [address] Hubert Novak HDL NORMAL > or = 60 mg/dl - LOW CARDIOVASCULAR RISK <40 mg/dl - HIGH CARDIOVASCULAR RISK Normal [facility] Comment on above: Performed By: #### R SPLUS #### [facility] [address] [place] [address] Dr. Hubert Novak LDL CALC NORMAL SEE BELOW Normal [facility] Comment on above: Result Comment: <100 mg/dl OPTIMAL 100 - 129 mg/dl NEAR OR ABOVE OPTIMAL 130 - 159 mg/dl BORDERLINE HIGH 160 - 189 mg/dl HIGH >190 mg/dl VERY HIGH Performed By: #### R SPLUS #### [facility] [address] [address] [address] Hubert Novak Triglyceride [Mass/Vol] 96 mg/dL Normal <=150 T [facility] Comment on above: Performed By: #### R SPLUS #### [facility] [address] [place] [address] Dr. Hubert Novak VLDL CALC 19.2 mg/dL Normal [facility] Comment on above: Performed By: #### R SPLUS #### [facility] [address] [address] [address] Hubert Novak PROF 14(COMP METB)on 022 Albumin [Mass/Vol] 3.7 g/dL Normal 3.4-5.0 [facility] Comment on above: Performed By: #### R SPLUS #### [facility] [address] [place] [address] Dr. Hubert Novak Albumin/Globulin [Mass ratio] 0.9 {ratio} Normal [facility] Comment on above: Performed By: #### R SPLUS #### [facility] [address] [address] [address] Hubert Novak ALP [Catalytic activity/Vol] 88 U/L Normal 46-116 [facility] Comment on above: Performed By: #### R SPLUS #### [facility] [address] [address] [address] Hubert Novak ALT [Catalytic activity/Vol] 15 U/L Normal 14-59 [facility] Comment on above: Performed By: #### R SPLUS #### [facility] [address] [address] [address] Hubert Novak Anion gap [Moles/Vol] 11.6 mmol/L Normal [facility] Comment on above: Performed By: #### R SPLUS #### [facility] [address] [place] [address] Dr. Hubert Novak AST [Catalytic activity/Vol] 9 U/L Critically low 15-37 [facility] Comment on above: Performed By: #### R SPLUS #### [facility] [address] [place] [address] Dr. Hubert Novak Bilirubin [Mass/Vol] 0.3 mg/dL Normal 0.2-1.0 [facility] Comment on above: Performed By: #### R SPLUS #### [facility] [address] [place] [address] Dr. Hubert Novak Calcium [Mass/Vol] 9.3 mg/dL Normal 8.5-10.1 [facility] Comment on above: Performed By: #### R SPLUS #### [facility] [address] [place] [address] Dr. Hubert Novak Chloride [Moles/Vol] 103 mmol/L Normal 98-107 [facility] Comment on above: Performed By: #### R SPLUS #### [facility] [address] [address] [address] Hubert Novak CO2 [Moles/Vol] 27.6 mmol/L Normal 21.0-32.0 [facility] Comment on above: Performed By: #### R SPLUS #### [facility] [address] [address] [address] Hubert Novak Creatinine [Mass/Vol] 0.60 mg/dL Normal 0.55-1.02 [facility] Comment on above: Performed By: #### R SPLUS #### [facility] [address] [place] [address] Dr. Hubert Novak EGFR-AF TRISTANIAN >60 Normal >=60 [facility] Comment on above: Performed By: #### R SPLUS #### [facility] [address] [address] [address] Hubert Novak EGFR-NON AF TRISTANIAN >60 Normal >=60 [facility] Comment on above: Performed By: #### R SPLUS #### [facility] [address] [address] [address] Hubert Novak Globulin (S) [Mass/Vol] 4.0 g/dL Normal T [facility] Comment on above: Performed By: #### R SPLUS #### [facility] [address] [place] [address] Dr. Hubert Novak Glucose [Mass/Vol] 94 mg/dL Normal 74-106 [facility] Comment on above: Performed By: #### R SPLUS #### [facility] [address] [place] [address] Dr. Hubert Novak Potassium [Moles/Vol] 4.2 mmol/L Normal 3.5-5.1 [facility] Comment on above: Performed By: #### R SPLUS #### [facility] [address] [place] [address] Dr. Hubert Novak Protein [Mass/Vol] 7.7 g/dL Normal 6.4-8.2 [facility] Comment on above: Performed By: #### R SPLUS #### [facility] [address] [place] [address] Dr. Hubert Novak Sodium [Moles/Vol] 138 mmol/L Normal 136-145 [facility] Comment on above: Performed By: #### R SPLUS #### [facility] [address] [place] [address] Dr. Hubert Novak Urea nitrogen [Mass/Vol] 9.0 mg/dL Normal 7.0-18.0 [facility] Comment on above: Performed By: #### R SPLUS #### [facility] [address] [place] [address] Dr. Hubert Novak Urea nitrogen/Creatinine [Mass ratio] 15.0 mg/mg Normal [facility] Comment on above: Performed By: #### R SPLUS #### [facility] [address] [place] [address] Dr. Hubert Novak THYROID PEROXIDASE ABon 03-15 Thyroid Peroxidase (TPO) Ab >600 Critically high 0-34 [facility] Comment on above: Performed By: #### T POAB #### [facility] [address] [place] [address] Dr. Hubert Novak FREE T4on 04-03-2022 Free T4 [Mass/Vol] 0.77 ng/dL Normal 0.76-1.46 [facility] Comment on above: Performed By: #### R SPLUS #### [facility] [address] [place] [address] Dr. Hubert Novak TSHon 04-03-2022 TSH 9.309 uIU/mL Critically high 0.358-3.740 [facility] Comment on above: Performed By: #### T SH #### [facility] [address] [place] [address] Dr. Hubert Novak Vital Signs Date Time Vital Sign Value Performing Clinician Faci lity 08-11-2023 12:37-0500 Diastolic blood pressure 79 mm[Hg] [facility] Red Shammo Work Phone: [facility] 08-11-2023 12:37-0500 Heart rate 68 /min [facility]- Red Shammo Work Phone: [facility] 08-11-2023 12:37-0500 Respiratory rate 18 /min [facility]- Red [facility] Work Phone: [facility] 08-11-2023 12:37-0500 SaO2% (BldA) [Mass fraction] 96 % [facility]-BC Red Shammo Work Phone: [facility] 08-11-2023 12:37-0500 Systolic blood pressure 158 mm[Hg] [facility]-BC Red Shammo Work Phone: [facility] 08-11-2023 10:16-0500 Body height 165.1 cm MANAGER QA-BC Red Shammo Work Phone: [facility] 08-11-2023 10:16-0500 Body weight [address] [facility] Work Phone: [facility] 08-11-2023 10:15-0500 Body temperature 98 [degF] [facility] [place] Work Phone: [facility] Encounters Encounter Date Encounter Type Care Provider Facility Start: 08-11-2023 End: 08-11-2023 Emergency department patient visit Wendy Frazier Facility:[facility] Start: 08-11-2023 End: 08-11-2023 Emergency department patient visit [facility]- Red Shammo Work Phone: [facility] Work Phone: Start: 11-06-2022 End: 11-07-2022 ambulatory RED SHAMMO Facility:[facility] Start: 07-03-2022 End: 07-03-2022 ambulatory RED SHAMMO Facility:[facility] Start: 07-01-2022 End: 07-02-2022 ambulatory RED SHAMMO Facility:[facility] Start: 06-25-2022 End: 06-26-[address] ANGEL LUIS ALEJANDRA Facility:[facility] Start: 04-17-2022 Encounter for genera l adult medical examination without abnormal findings RED SHAMMO [facility] Start: 04-15-2022 End: 04-16-2022 ambulatory RED SHAMMO Facility:[facility] Start: 04-15-2022 End: 04-16-2022 Encounter for general adult medical examination without abnormal findings RED SHAMMO Facility:[facility] Start: 04-03-2022 End: 04-04-[address] DOCTOR FRAIRE Facility:[facility] Plan of Treatment Date Care Activity Detail Author Start: 12-12-2022 ambulatory Ambulatory Facility:[facility] Patient Education Nausea and Vom iting, Adult (DC) [facility] Work Phone: Patient referral [facility] Work Phone: Payers Date Payer Category Payer Self-pay 2023 Unknown [id number] 1990 Unknown [id number] 1990 Unknown [id number] 1992 Unknown [id number] .593 1992 Unknown [id number] .593 1992 Unknown [id number] .593 1992 Unknown [id number] .593 1992 Unknown [id number] .593 1959 Self-pay [id number] 1957 Unknown [id number] Private Health Insurance [employer] [facility] [employer] [id number] Unknown [id number] Social History Date Type Detail Facility Start: [facility]11[facility]23 [facility] Start: 1990 Sex Assigned At Female F [facility] Evaluation note Note Date & Type Note Facility Evaluation note No assessment information availa ble [facility] Work Phone: Hospital Discharge instructions Note Date & Type Note Facility Hospital Discharge instructions Additional Instructions We evaluated you for your nausea, vomiting, diarrhea. You are feeling improved. Please use the nausea medicine as needed. Please ensure you are staying hydrated. Please eat a bland diet until your symptoms have improved. Please follow with your primary care provider as soon as possible. Please return to the emergency department if you develop any worsening or concerning symptoms. [facility] Work Phone: Summary Purpose Family History No Family History Records FoundNo Family History Records Found Advance Directives No Advanced Directives Records Found Advance Directive Response Recorded Date/ Time Advance Directives No August 11, 2023 9:50am Chief Complaint and Reason for Visit Chief Complaint abd pain Additional Source Comments INFORMATION SOURCE (unrecogn ized section and content) DATE CREATED AUTHOR 11/14/2022 [facility] DATE CREATED AUTHOR 'S ORGANIZ ATION 08/21/2023 [facility] Care Teams (unrecognized sec tion and content) Team Status: Active Member Role Status Dates [facility] Primary Care Provider Active Team Status: Inactive Member Role Status Dates [facility] Primary Care Provider Active Start: August 11, 2023 End: August 11, 2023 Wendy Frazier DO Emergency Provider Active Start: August 11, 2023 End: August 11, 2023 Goals (unrecognized section and content) Goals may be documented in a n alternate section FOR RECORDS PERTAINING TO PATIENTS WHO ARE OR HAVE BEEN ENROLLED IN A CHEMICAL DEPENDENCY/SUBSTANCEABUSE PROGRAM, SOME INFORMATION MAY BE OMITTED. This clinical summary was aggregated from multiple sources. Caution should be exercised in using it in the provision of clinical care. This summary normalizes information from multiple sources, and as a consequence, information in this document may materially change the coding, format and clinical context of patient data. In addition, data may be omitted in some cases. CLINICAL DECISIONS SHOULD BE BASED ON THE PRIMARY CLINICAL RECORDS. [employer] provides no warranty or guarantee of the accuracy or completeness of information in this document.
[2024-01-06 10:08] LABS: Hemoglobin 12.5 g/dL (12.0-16.0); Mean Corpuscular HGB Conc 32.1 g/dL (29.9-35.2); Mean Corpuscular Hemoglobin 27.5 pg (26.7-34.0); Mean Corpuscular Volume 85.7 fL (81.0-99.0); Mean Platelet Volume 8.5 fL (9.5-13.5); Platelet Count 446 10^3/uL (150-450); Red Blood Count 4.55 10^6/uL (4.20-5.40); Red Cell Distribution Width 13.2 % (11.0-15.0); White Blood Count 9.2 10^3/uL (4.0-11.0)
[2024-01-06 10:48] LABS: Percent Iron Saturation 15.6 %
[2024-01-06 11:02] LABS: Alanine Aminotransferase 16 U/L (14-59); Albumin Globulin Ratio 1.1; Albumin Level 3.7 g/dL (3.4-5.0); Alkaline Phosphatase 89 U/L (46-116); Aspartate Amino Transferase 8 U/L (15-37); BUN Creatinine Ratio 15.7; Bilirubin Total 0.4 mg/dL (0.2-1.0); Calcium 9.1 mg/dL (8.5-10.1); Chloride 107 mmol/L (98-107); Estimated GFR (African America >60 (>=60); Estimated GFR (Non-African Ame >60 (>=60); Globulin 3.4 g/dL; Glucose 100 mg/dL (74-106); Sodium 140 mmol/L (136-145); TSH W/ REFLEX FT4 2.368 uIU/mL (0.358-3.740); Total Protein 7.1 g/dL (6.4-8.2)
== END 2024-01-06 09:39 | disposition home or self-care (01) ==
LOC: LAB 09:40
PROVIDERS: PCP Nurse Practitioner; Visit Provider Nurse Practitioner
DX: R53.83 Other fatigue (principal); E03.9 Hypothyroidism, unspecified
CPT/HCPCS: 36415; 80053; 82306; 83540; 83550; 84443; 85027

== ENCOUNTER 2024-03-02 10:33 | Outpatient (OUT) | payer BC, SELFPAY ==
--- OUTSIDE RECORDS SUMMARY | 2024-03-02 10:51 | XMS_ITS | CCD ---
Author Organization [facility] Care Team Providers Care Script Girl Name Role Phone SHAMMO, RED Admitting Unavailable SHAMMO, RED Primary Care Unavailable SHAMMO, RED Attending Unavailable ZIEBER, DR ANGEL LUIS Gloria Consulting Unavailable SHAMMO, RED Admitting Unavailable SHAMMO, RED Primary Care Unavailable SHAMMO, RED Attending Unavailable SHAMMO, RED Consulting Unavailable SHAMMO, RED Admitting Unavailable SHAMMO, RED Primary Care Unavailable SHAMMO, RED Consulting Unavailable SHAMMO, RED Attending Unavailable MISC, DR BROWN Admitting Unavailable MISC, DR BROWN Consulting Unavailable [...] Attending Unavailable SHAMMO, RED Consulting Unavailable Shammo, ERECTOR OPERATOR- Red T Primary Care Provider DO Wendy Frazier Emergency Provider [phone] Wendy Frazier Attending Unavailable Wendy Frazier Admitting Unavailable Shammo, Red T Primary Care Unavailable Allergies Allergy Classification Reported Allergen(s) Allergy Type Date of Onset Reaction(s) Facility (1 source) Pseudoephedrine Drug Allergy [address] [place] [address] Repository Medications Current Medications Medication Drug Class(es) [...] 08-11-2023 ALT [Catalytic activity/Vol] 9 U/L 7-52 [facility] Albumin [Mass/volume] in Ser um or Plasma by Bromocresol green (BCG) dye binding methoOrdered By: Wendy Frazier on 08-11-2023 Albumin BCG dye [Mass/Vol] 4.5 g/dL 3.5-5.7 [facility] Alkaline phosphatase [Enzyma tic activity/volume] in Serum or PlasmaOrdered By: Wendy Frazier on 08-11-2023 ALP [Catalytic activity/Vol] 86 U/L 34-104 [facility] Aspartate aminotransferase [ Enzymatic activity/volume] in Serum or PlasmaOrdered By: Wendy Frazier on 08-11-2023 AST [Catalytic activity/Vol] 12 U/L 13-39 [facility] Basic Metabolic Panelon 07-15 Anion gap [Moles/Vol] 10.1 mmol/L Normal 6.0-15.0 [facility] Comment on above: Performed By: #### H EPATIC, CBC, BMP, LIPASE, HCGQUAL #### [facility] [address] [place] [address] [place] Calcium [Mass/Vol] 9.6 mg/dL Normal 8.6-10.3 [facility] Comment on above: Performed By: #### H EPATIC, CBC, BMP, LIPASE, HCGQUAL #### [facility] [address] [place] [id number] [place] Chloride [Moles/Vol] 109 mmol/L High 98-107 [facility] Comment on above: Performed By: #### H EPATIC, CBC, BMP, LIPASE, HCGQUAL #### [address] CO2 [Moles/Vol] 21.5 mmol/L Normal 21.0-31.0 [facility] Comment on above: Performed By: #### H EPATIC, CBC, BMP, LIPASE, HCGQUAL #### [address] Creatinine [Mass/Vol] 0.75 mg/dL Normal 0.60-1.20 [facility] Comment on above: Performed By: #### H EPATIC, CBC, BMP, LIPASE, HCGQUAL #### [address] Creatinine Clr Calc Pharmacy 130.05 [facility] Comment on above: Performed By: #### H EPATIC, CBC, BMP, LIPASE, HCGQUAL #### [address] GFR/1.73 sq M.predicted MDRD (S/P/Bld) [Vol rate/Area] mL/min/{1.73_m2} [facility] Comment on above: Performed By: #### H EPATIC, CBC, BMP, LIPASE, HCGQUAL #### [address] Glucose [Mass/Vol] 92 mg/dL Normal 70-100 [facility] Comment on above: Result Comment: [place] Glucose Reference Range is dependent on time and content of last meal. Glucose of more than 200 mg/dL in a nonstressed, ambulatory subject supports the diagnosis of Diabetes Mellitus. ADA recommended reference range Performed By: #### H EPATIC, CBC, BMP, LIPASE, HCGQUAL #### [address] Potassium [Moles/Vol] 4.6 mmol/L Normal 3.5-5.1 [facility] Comment on above: Performed By: #### H EPATIC, CBC, BMP, LIPASE, HCGQUAL #### [facility] [address] [place] [id number] [place] Sodium [Moles/Vol] 136 mmol/L Normal 136-145 [facility] Comment on above: Performed By: #### H EPATIC, CBC, BMP, LIPASE, HCGQUAL #### [facility] [address] [place] [id number] [facility] Urea nitrogen [Mass/Vol] 11 mg/dL Normal 7-25 [facility] Comment on above: Performed By: #### H EPATIC, CBC, BMP, LIPASE, HCGQUAL #### [facility] [address] Basophils Auto (Bld) [#/Vol] Ordered By: Wendy Frazier on 08-11-2023 Basophils (Bld) [#/Vol] 0.1 10*3/uL 0.0-0.2 [facility] Basophils/100 WBC Auto (Bld) Ordered By: Wendy Frazier on 08-11-2023 Basophils/100 WBC (Bld) 1.1 % . [facility] Bilirubin Test strip Ql (U)O rdered By: Wendy Frazier on 08-11-2023 Bilirubin Ql (U) Negative Negative [facility] Bilirubin.direct [Mass/volum e] in Serum or PlasmaOrdered By: Wendy Frazier on 08-11-2023 Bilirubin.direct [Mass/Vol] 0.10 mg/dL 0.03-0.18 [facility] Bilirubin.total [Mass/volume ] in Serum or PlasmaOrdered By: Wendy Frazier on 08-11-2023 Bilirubin [Mass/Vol] 0.3 mg/dL 0.3-1.0 [facility] Calcium [Mass/volume] in Ser um or PlasmaOrdered By: Wendy Frazier on 08-11-2023 Calcium [Mass/Vol] 9.6 mg/dL 8.6-10.3 [facility] Carbon dioxide, total [Moles /volume] in Serum or PlasmaOrdered By: Wendy Frazier on 08-11-2023 CO2 [Moles/Vol] 21.5 mmol/L 21.0-31.0 [facility] Chloride [Moles/volume] in S rodolfo or PlasmaOrdered By: Wendy Frazier on 08-11-2023 Chloride [Moles/Vol] 109 mmol/L 98-107 [facility] Choriogonadotropin.beta subu nit [Units/volume] in Serum or PlasmaOrdered By: Wendy Frazier on 08-11-2023 HCG.beta subunit Qn Negative [facility] Color Auto (U)Ordered By: Balaji Frazier on 08-11-2023 Color (U) Yellow Yellow [facility] Complete Blood Count Auto Di ffon 08-11-2023 Basophils (Bld) [#/Vol] 0.1 10*3/uL Normal 0.0-0.2 [facility] Comment on above: Result Comment: PERF ORMED BY: [place] [address] PATHOLOGIST BLEACH RANGE OPERATOR GLADYS RUBY M.D. Performed By: #### H EPATIC, CBC, BMP, LIPASE, HCGQUAL #### [address] Basophils/100 WBC (Bld) 1.1 % Normal . [facility] Comment on above: Performed By: #### H EPATIC, CBC, BMP, LIPASE, HCGQUAL #### [address] Eosinophils (Bld) [#/Vol] 0.2 10*3/uL Normal 0.0-0.45 [facility] Comment on above: Performed By: #### H EPATIC, CBC, BMP, LIPASE, HCGQUAL #### [address] Eosinophils/100 WBC (Bld) 1.3 % Normal . [facility] Comment on above: Performed By: #### H EPATIC, CBC, BMP, LIPASE, HCGQUAL #### [address] Erythrocyte distribution width (RBC) [Ratio] 14.1 % Normal 11.9-15.3 [facility] Comment on above: Performed By: #### H EPATIC, CBC, BMP, LIPASE, HCGQUAL #### [address] Hematocrit (Bld) [Volume fraction] 40.6 % Normal 34.0-46.4 [facility] Comment on above: Performed By: #### H EPATIC, CBC, BMP, LIPASE, HCGQUAL #### [address] Hemoglobin (Bld) [Mass/Vol] 13.3 g/dL Normal 11.8-15.4 [facility] Comment on above: Performed By: #### H EPATIC, CBC, BMP, LIPASE, HCGQUAL #### [address] Lymphocytes (Bld) [#/Vol] 1.8 10*3/uL Normal 1.00-4.8 [facility] Comment on above: Performed By: #### H EPATIC, CBC, BMP, LIPASE, HCGQUAL #### [address] Lymphocytes/100 WBC (Bld) 13.3 % Normal . [facility] Comment on above: Performed By: #### H EPATIC, CBC, BMP, LIPASE, HCGQUAL #### [address] MCH (RBC) [Entitic mass] 27.2 pg Normal 24.7-34.3 [facility] Comment on above: Performed By: #### H EPATIC, CBC, BMP, LIPASE, HCGQUAL #### [address] MCV (RBC) [Entitic vol] 82.9 fL Normal 80-100 [facility] Comment on above: Performed By: #### H EPATIC, CBC, BMP, LIPASE, HCGQUAL #### [address] Mean Corpuscular HGB Conc 32.9 g/dL Normal 32.0-35.0 [facility] Comment on above: Performed By: #### H EPATIC, CBC, BMP, LIPASE, HCGQUAL #### [address] Monocytes (Bld) [#/Vol] 0.9 10*3/uL High 0.0-0.8 [facility] Comment on above: Performed By: #### H EPATIC, CBC, BMP, LIPASE, HCGQUAL #### [address] Monocytes/100 WBC (Bld) 16.34 % Normal 0.00-20.00 [facility] Comment on above: Performed By: #### H EPATIC, CBC, BMP, LIPASE, HCGQUAL #### [address] Monocytes/100 WBC (Bld) 7.0 % Normal . [facility] Comment on above: Performed By: #### H EPATIC, CBC, BMP, LIPASE, HCGQUAL #### [address] Neutrophils (Bld) [#/Vol] 10.3 10*3/uL High 1.8-7.7 [facility] Comment on above: Performed By: #### H EPATIC, CBC, BMP, LIPASE, HCGQUAL #### [address] Neutrophils/100 WBC (Bld) 77.3 % Normal . [facility] Comment on above: Performed By: #### H EPATIC, CBC, BMP, LIPASE, HCGQUAL #### [address] NRBC% 0.1 /100{WBC} Normal 0-0.5 [facility] Comment on above: Performed By: #### H EPATIC, CBC, BMP, LIPASE, HCGQUAL #### [address] Platelet mean volume (Bld) [Entitic vol] 6.7 fL Normal 6.3-10.7 [facility] Comment on above: Performed By: #### H EPATIC, CBC, BMP, LIPASE, HCGQUAL #### [facility] [address] Platelets (Bld) [#/Vol] 560 10*3/uL High 150-450 [facility] Comment on above: Performed By: #### H EPATIC, CBC, BMP, LIPASE, HCGQUAL #### [facility] [address] RBC (Bld) [#/Vol] 4.90 10*6/uL Normal 3.60-5.00 [facility] Comment on above: Performed By: #### H EPATIC, CBC, BMP, LIPASE, HCGQUAL #### [facility] [address] WBC (Bld) [#/Vol] 13.2 10*3/uL High 3.8-11.6 [facility] Comment on above: Performed By: #### H EPATIC, CBC, BMP, LIPASE, HCGQUAL #### [facility] [address] Creatinine [Mass/volume] in Serum or PlasmaOrdered By: Wendy Frazier on 08-11-2023 Creatinine [Mass/Vol] 0.75 mg/dL 0.60-1.20 [facility] Eosinophils Auto (Bld) [#/Vo l]Ordered By: Wendy Frazier on 08-11-2023 Eosinophils (Bld) [#/Vol] 0.2 10*3/uL 0.0-0.45 [facility] Eosinophils/100 WBC Auto (Bl d)Ordered By: Wendy Frazier on 08-11-2023 Eosinophils/100 WBC (Bld) 1.3 % . [facility] Erythrocyte distribution wid th Auto (RBC) [Ratio]Ordered By: Wendy Frazier on 08-11-2023 Erythrocyte distribution width (RBC) [Ratio] 14.1 % 11.9-15.3 [facility] Globulin Calc (S) [Mass/Vol] Ordered By: Wendy Frazier on 08-11-2023 Globulin (S) [Mass/Vol] 2.8 g/dL [facility] Glucose [Mass/volume] in Ser um or PlasmaOrdered By: Wendy Frazier on 08-11-2023 Glucose [Mass/Vol] 92 mg/dL 70-100 [facility] Comment on above: ADA recommended refe rence rangeRandom Glucose Reference Range is dependent on time and content of last meal. Glucose of more than 200 mg/dL in a nonstressed, ambulatory subject supports the diagnosis of Diabetes Mellitus. HCG,Qualitative Serumon 07-15 HCG,Qualitative Serum Negative Normal [facility] Comment on above: Result Comment: PERF ORMED BY: [place] [address] PATHOLOGIST BLEACH RANGE OPERATOR GLADYS RUBY M.D. Performed By: #### H EPATIC, CBC, BMP, LIPASE, HCGQUAL #### [address] Hematocrit Auto (Bld) [Volum e fraction]Ordered By: Wendy Frazier on 08-11-2023 Hematocrit (Bld) [Volume fraction] 40.6 % 34.0-46.4 [facility] Hemoglobin [Mass/volume] in BloodOrdered By: Wendy Frazier on 08-11-2023 Hemoglobin (Bld) [Mass/Vol] 13.3 g/dL 11.8-15.4 [facility] Hepatic Panelon 08-11-2023 Albumin [Mass/Vol] 4.5 g/dL Normal 3.5-5.7 [facility] Comment on above: Performed By: #### H EPATIC, CBC, BMP, LIPASE, HCGQUAL #### [facility] [address] [place] [address] Albumin/Globulin [Mass ratio] 1.6 {ratio} Normal [facility] Comment on above: Performed By: #### H EPATIC, CBC, BMP, LIPASE, HCGQUAL #### [facility] [address] [place] [address] ALP [Catalytic activity/Vol] 86 U/L Normal 34-104 [facility] Comment on above: Performed By: #### H EPATIC, CBC, BMP, LIPASE, HCGQUAL #### [address] ALT [Catalytic activity/Vol] 9 U/L Normal 7-52 [facility] Comment on above: Performed By: #### H EPATIC, CBC, BMP, LIPASE, HCGQUAL #### [address] AST [Catalytic activity/Vol] 12 U/L Low 13-39 [facility] Comment on above: Performed By: #### H EPATIC, CBC, BMP, LIPASE, HCGQUAL #### [address] Bilirubin [Mass/Vol] 0.3 mg/dL Normal 0.3-1.0 [facility] Comment on above: Performed By: #### H EPATIC, CBC, BMP, LIPASE, HCGQUAL #### [address] Bilirubin,Indirect 0.2 mg/dL Normal [facility] Comment on above: Performed By: #### H EPATIC, CBC, BMP, LIPASE, HCGQUAL #### [address] Bilirubin.indirect [Mass/Vol] 0.10 mg/dL Normal 0.03-0.18 [facility] Comment on above: Performed By: #### H EPATIC, CBC, BMP, LIPASE, HCGQUAL #### [address] Globulin (S) [Mass/Vol] 2.8 g/dL Normal [facility] Comment on above: Performed By: #### H EPATIC, CBC, BMP, LIPASE, HCGQUAL #### [address] Protein [Mass/Vol] 7.3 g/dL Normal 6.4-8.9 [facility] Comment on above: Performed By: #### H EPATIC, CBC, BMP, LIPASE, HCGQUAL #### [address] Ketones Auto test strip (U) [Mass/Vol]Ordered By: Wendy Frazier on 08-11-2023 Ketones (U) [Mass/Vol] Negative Negative [facility] Leukocytes [#/volume] correc nina for nucleated erythrocytes in Blood by Automated counOrdered By: Wendy Frazier on 08-11-2023 WBC corrected for nucl RBC Auto (Bld) [#/Vol] 13.2 10*3/uL 3.8-11.6 [facility] Lipaseon 08-11-2023 Lipase [Catalytic activity/Vol] 23.0 U/L Normal 11.0-82.0 [facility] Comment on above: Performed By: #### H EPATIC, CBC, BMP, LIPASE, HCGQUAL #### [facility] [address] Lipase [Enzymatic activity/v olume] in Serum or PlasmaOrdered By: Wendy Frazier on 08-11-2023 Lipase [Catalytic activity/Vol] 23.0 U/L 11.0-82.0 [facility] Lymphocytes Auto (Bld) [#/Vo l]Ordered By: Wendy Frazier on 08-11-2023 Lymphocytes (Bld) [#/Vol] 1.8 10*3/uL 1.00-4.8 [facility] Lymphocytes/100 WBC Auto (Bl d)Ordered By: Wendy Frazier on 08-11-2023 Lymphocytes/100 WBC (Bld) 13.3 % . [facility] MCH Auto (RBC) [Entitic mass ]Ordered By: Wendy Frazier on 08-11-2023 MCH (RBC) [Entitic mass] 27.2 pg 24.7-34.3 [facility] MCHC Auto (RBC) [Mass/Vol]Or dered By: Wendy Frazier on 08-11-2023 MCHC (RBC) [Mass/Vol] 32.9 g/dL 32.0-35.0 [facility] MCV Auto (RBC) [Entitic vol] Ordered By: Wendy Frazier on 08-11-2023 MCV (RBC) [Entitic vol] 82.9 fL 80-100 [facility] Monocyte distribution width [Entitic volume] in Blood by AutomatedOrdered By: Wendy Frazier on 08-11-2023 Monocyte distribution width Auto (Bld) [Entitic vol] 16.34 % 0.00-20.00 [facility] Monocytes Auto (Bld) [#/Vol] Ordered By: Wendy Frazier on 08-11-2023 Monocytes (Bld) [#/Vol] 0.9 10*3/uL 0.0-0.8 [facility] Monocytes/100 WBC Auto (Bld) Ordered By: Wendy Frazier on 08-11-2023 Monocytes/100 WBC (Bld) 7.0 % . [facility] Neutrophils Auto (Bld) [#/Vo l]Ordered By: Wendy Frazier on 08-11-2023 Neutrophils (Bld) [#/Vol] 10.3 10*3/uL 1.8-7.7 [facility] Neutrophils/100 WBC Auto (Bl d)Ordered By: Wendy Frazier on 08-11-2023 Neutrophils/100 WBC (Bld) 77.3 % . [facility] Nitrite Test strip Ql (U)Ord ered By: Wendy Frazier on 08-11-2023 Nitrite Ql (U) Negative Negative [facility] No Panel InformationOrdered By: Wendy Frazier on 08-11-2023 Estimated GFR (CKD-EPI) > 60.0 mL/Min [facility] Creatinine Clearance (Chem 130.05 [facility] Nucleated erythrocytes [Pres ence] in Blood by Automated countOrdered By: Wendy Frazier on 08-11-2023 Nucleated RBC Auto Ql (Bld) 0.1 /100{WBC} 0-0.5 [facility] Platelet mean volume Auto (B ld) [Entitic vol]Ordered By: Wendy Frazier on 08-11-2023 Platelet mean volume (Bld) [Entitic vol] 6.7 fL 6.3-10.7 [facility] Platelets Auto (Bld) [#/Vol] Ordered By: Wendy Frazier on 08-11-2023 Platelets (Bld) [#/Vol] 560 10*3/uL 150-450 [facility] Potassium [Moles/volume] in Serum or PlasmaOrdered By: Wendy Frazier on 08-11-2023 Potassium [Moles/Vol] 4.6 mmol/L 3.5-5.1 [facility] Protein Auto test strip (U) [Mass/Vol]Ordered By: Wendy Frazier on 08-11-2023 Protein (U) [Mass/Vol] Negative Negative [facility] Protein [Mass/volume] in Ser um or PlasmaOrdered By: Wendy Frazier on 08-11-2023 Protein [Mass/Vol] 7.3 g/dL 6.4-8.9 [facility] RBC Auto (Bld) [#/Vol]Ordere d By: Wendy Frazier on 08-11-2023 RBC (Bld) [#/Vol] 4.90 10*6/uL 3.60-5.00 [facility] Serum or plasma albumin/glob ulin mass ratioOrdered By: Wendy Frazier on 08-11-2023 Albumin/Globulin [Mass ratio] 1.6 {ratio} [facility] Serum or plasma anion gap de terminationOrdered By: Wendy Frazier on 08-11-2023 Anion gap [Moles/Vol] 10.1 mmol/L 6.0-15.0 [facility] Serum or plasma non-glucuron idated bilirubin measurement (mass/volume)Ordered By: Wendy Frazier on 08-11-2023 Bilirubin.indirect [Mass/Vol] 0.2 mg/dL [facility] Sodium [Moles/volume] in Ser um or PlasmaOrdered By: Wendy Frazier on 08-11-2023 Sodium [Moles/Vol] 136 mmol/L 136-145 [facility] Specific gravity Auto test s trip (U) [Rel density]Ordered By: Wendy Frazier on 08-11-2023 Specific gravity (U) [Rel density] 1.022 1.001-1.030 [facility] Urea nitrogen [Mass/volume] in Serum or PlasmaOrdered By: Wendy Frazier on 08-11-2023 Urea nitrogen [Mass/Vol] 11 mg/dL 7-25 [facility] Urinalysison 08-11-2023 Appearance (U) Clear Normal Clear [facility] Comment on above: Order Comment: Name Collection Type:: Voided Performed By: #### U A #### [facility] [address] [place] [address] Bilirubin,Urine Negative Normal Negative [facility] Comment on above: Order Comment: Name Collection Type:: Voided Performed By: #### U A #### [facility] [address] [place] [address] Color (U) Yellow Normal Yellow [facility] Comment on above: Order Comment: Name Collection Type:: Voided Performed By: #### U A #### [facility] [address] [place] [address] Glucose Ql (U) Normal Normal Normal [facility] Comment on above: Order Comment: Name Collection Type:: Voided Performed By: #### U A #### [address] Ketones Ql (U) Negative Normal Negative [facility] Comment on above: Order Comment: Name Collection Type:: Voided Performed By: #### U A #### [address] Leukocyte esterase Test strip Ql (U) Negative Normal Negative [facility] Comment on above: Order Comment: Name Collection Type:: Voided Performed By: #### U A #### [facility] [address] [place] [address] Nitrite,Urine Negative Normal Negative [facility] Comment on above: Order Comment: Name Collection Type:: Voided Performed By: #### U A #### [address] Occult Blood,Urine Negative Normal Negative [facility] Comment on above: Order Comment: Name Collection Type:: Voided Result Comment: PERF ORMED BY: [place] [address] PATHOLOGIST BLEACH RANGE OPERATOR GLADYS RUBY M.D. Performed By: #### U A #### [address] pH (U) 5.0 [pH] Normal 5.0-9.0 [facility] Comment on above: Order Comment: Name Collection Type:: Voided Performed By: #### U A #### [facility] [address] [place] [address] Protein,Urine Negative Normal Negative [facility] Comment on above: Order Comment: Name Collection Type:: Voided Performed By: #### U A #### [facility] [address] [place] [address] Specificy [place],Urine 1.022 Normal 1.001-1.030 [facility] Comment on above: Order Comment: Name Collection Type:: Voided Performed By: #### U A #### [facility] [address] [place] [address] Urobilinogen,Urine Normal Normal Normal [facility] Comment on above: Order Comment: Name Collection Type:: Voided Performed By: #### U A #### [facility] [address] [place] [address] Urine clarity by refractomet ry automatedOrdered By: Wendy Frazier on 08-11-2023 Clarity Refractometry automated (U) Clear Clear [facility] Urine glucose measurement by automated test strip (mass/volume)Ordered By: Wendy Frazier on 08-11-2023 Glucose Auto test strip (U) [Mass/Vol] Normal mg/dL Normal [facility] Urine hemoglobin detection b y automated test stripOrdered By: Wendy Frazier on 08-11-2023 Hemoglobin Auto test strip Ql (U) Negative Negative [facility] Urine leukocyte esterase det ection by automated test stripOrdered By: Wendy Frazier on 08-11-2023 Leukocyte esterase Auto test strip Ql (U) Negative Negative [facility] Urobilinogen Auto test strip (U) [Mass/Vol]Ordered By: Wendy Frazier on 08-11-2023 Urobilinogen (U) [Mass/Vol] Normal mg/dL Normal [facility] WBC Auto (Bld) [#/Vol]Ordere d By: Wendy Frazier on 08-11-2023 WBC (Bld) [#/Vol] 13.2 10*3/uL 3.8-11.6 [facility] pH Auto test strip (U)Ordere d By: Wendy Frazier on 08-11-2023 pH (U) 5.0 [pH] 5.0-9.[address] [facility] [address]K [address] W CONon 3 [...] LUIS ALEJANDRA Date: 2022-11-06 09:31 Normal [facility] RESPIRATORY PANEL PLUSon Adenovirus Not detected Normal NOT DETECTED [facility] Comment on above: Performed By: #### R SPLUS #### [facility] [address] [address] [address] Hubert Stearns. Parapertusis Not detected Normal NOT DETECTED [facility] Comment on above: Performed By: #### R SPLUS #### [facility] [address] [address] [address] Hubert Carlson Pertussis Not detected Normal NOT DETECTED [facility] Comment on above: Performed By: #### R SPLUS #### [facility] [address] [address] [address] Hubert Novak Chlamydia Pneumoniae Not detected Normal NOT DETECTED [facility] Comment on above: Performed By: #### R SPLUS #### [facility] [address] [place] [address] Dr. Hubert Novak Coronavirus 229E Not detected Normal NOT DETECTED [facility] Comment on above: Performed By: #### R SPLUS #### [facility] [address] [place] [address] Dr. Hubert Novak Coronavirus HKU1 Not detected Normal NOT DETECTED [facility] Comment on above: Performed By: #### R SPLUS #### [facility] [address] [address] [address] Hubert Novak Coronavirus NL63 Not detected Normal NOT DETECTED [facility] Comment on above: Performed By: #### R SPLUS #### [facility] [address] [place] [address] Dr. Hubert Novak Coronavirus OC43 Not detected Normal NOT DETECTED [facility] Comment on above: Performed By: #### R SPLUS #### [facility] [address] [place] [address] Dr. Hubert Novak Influenza A H1 2009 Not detected Normal NOT DETECTED [facility] Comment on above: Performed By: #### R SPLUS #### [facility] [address] [place] [address] Dr. Hubert Novak Influenza A H3 Not detected Normal NOT DETECTED [facility] Comment on above: Performed By: #### R SPLUS #### [facility] [address] [place] [address] Dr. Hubert Novak Influenza B Not detected Normal NOT DETECTED [facility] Comment on above: Performed By: #### R SPLUS #### [facility] [address] [place] [address] Dr. Hubert Novak Metapneumovirus Not detected Normal NOT DETECTED [facility] Comment on above: Performed By: #### R SPLUS #### [facility] [address] [address] [address] Hubert Novak Mycoplas. Pneumoniae Not detected Normal NOT DETECTED [facility] Comment on above: Performed By: #### R SPLUS #### [facility] [address] [place] [address] Dr. Hubert Novak Parainfluenza 1 Not detected Normal NOT DETECTED The [facility] Comment on above: Performed By: #### R SPLUS #### [facility] [address] [place] [address] Dr. Hubert Novak Parainfluenza 2 Not detected Normal NOT DETECTED The [facility] Comment on above: Performed By: #### R SPLUS #### [facility] [address] [place] [address] Dr. Hubert Novak Parainfluenza 3 Not detected Normal NOT DETECTED The [facility] Comment on above: Performed By: #### R SPLUS #### [facility] [address] [place] [address] Dr. Hubert Novak Parainfluenza 4 Not detected Normal NOT DETECTED The [facility] Comment on above: Performed By: #### R SPLUS #### [facility] [address] [place] [address] Dr. Hubert Novak Rhino/Enterovirus Not detected Normal NOT DETECTED [facility] Comment on above: Performed By: #### R SPLUS #### [facility] [address] [place] [address] Dr. Hubert Novak RP2 Header 1 RESPIRATORY PANEL: VIRUSES Normal [facility] Comment on above: Performed By: #### R SPLUS #### [facility] [address] [place] [address] Dr. Hubert Novak RP2 Header 2 RESPIRATORY PANEL: BACTERIA Normal [facility] Comment on above: Performed By: #### R SPLUS #### [facility] [address] [place] [address] Dr. Hubert Novak RSV Not detected Normal NOT DETECTED The [facility] Comment on above: Performed By: #### R SPLUS #### [facility] [address] [place] [address] Dr. Hubert Novak SARS-CoV-2 (COVID-19) RNA GILMAR+probe Ql (Unsp spec) Not detected Normal NOT DETECTED The [facility] Comment on above: Performed By: #### R SPLUS #### [facility] [address] [address] [address] Hubert Novak FREE T3on 07-01-2022 FREE T3 2.15 pg/mlL Critically low 2.18-3.98 The [facility] Comment on above: Performed By: #### T SH, FT3 #### [facility] [address] [address] [address] Hubert Novak FREE T4on 07-01-2022 Free T4 [Mass/Vol] 1.17 ng/dL Normal 0.76-1.46 The [facility] Comment on above: Performed By: #### F T4 #### [facility] [address] [address] [address] Hubert Novak TSHon 07-01-2022 TSH 1.765 uIU/mL Normal 0.358-3.740 The [facility] Comment on above: Performed By: #### T SH, FT3 #### [facility] [address] [address] [address] Hubert Novak US THYROIDon 06-26-2022 US [...] LUIS ALEJANDRA Date: 2022-06-26 21:57 Normal The [facility] HEPATITIS C AB CASCADE TO QU ANT PCR GENOon 04-16-2022 HCV AB <0.1 Normal 0.0-0.9 [facility] Comment on above: Performed By: #### R SPLUS #### [facility] [address] [place] [address] Dr. Hubert Novak Interpretation: Comment Normal The [facility] Comment on above: Result Comment: Nega tive Not infected with HCV, unless recent infection is suspected or other evidence exists to indicate HCV infection. Performed By: #### R SPLUS #### [facility] [address] [place] [address] Dr. Hubert Novak CBC AUTO DIFFon 04-15-2022 BASO # 0.1 103/ul Normal 0.0-0.1 [facility] Comment on above: Performed By: #### C BC #### [facility] [address] [place] [address] Dr. Hubert Novak Basophils/100 WBC (Bld) 0.8 % Normal 0.2-2.0 [facility] Comment on above: Performed By: #### C BC #### [facility] [address] [place] [address] Dr. Hubert Novak EO # 0.2 103/ul Normal 0.0-0.7 [facility] Comment on above: Performed By: #### C BC #### [facility] [address] [place] [address] Dr. Hubert Novak Eosinophils/100 WBC (Bld) 1.5 % Normal 0.9-7.0 [facility] Comment on above: Performed By: #### C BC #### [facility] [address] [place] [address] Dr. Hubert Novak Erythrocyte distribution width (RBC) [Ratio] 12.9 % Normal 11.0-15.0 [facility] Comment on above: Performed By: #### C BC #### [facility] [address] [place] [address] Dr. Hubert Novak Hematocrit (Bld) [Volume fraction] 39.2 % Normal 36.0-48.0 [facility] Comment on above: Performed By: #### C BC #### [facility] [address] [address] [address] Hubert Novak Hemoglobin (Bld) [Mass/Vol] 12.6 g/dL Normal 12.0-16.0 [facility] Comment on above: Performed By: #### C BC #### [facility] [address] [address] [address] Hubert Novak IG # 0.07 10e3/ul Critically high 0.00-0.03 [facility] Comment on above: Performed By: #### C BC #### [facility] [address] [address] [address] Hubert Novak IG % 0.6 % Critically high 0.0-0.5 [facility] Comment on above: Performed By: #### C BC #### [facility] [address] [place] [address] Dr. Hubert Novak LYMPH # 1.9 103/ul Normal 1.2-3.8 [facility] Comment on above: Performed By: #### C BC #### [facility] [address] [place] [address] Dr. Hubert Novak Lymphocytes/100 WBC (Bld) 16.1 % Critically low 20.5-6 0.0 [facility] Comment on above: Performed By: #### C BC #### [facility] [address] [place] [address] Dr. Hubert Novak MANUAL DIFF REQ NO Normal [facility] Comment on above: Performed By: #### C BC #### [facility] [address] [address] [address] Hubert Novak MCH (RBC) [Entitic mass] 27.1 pg Normal 26.7-34.0 [facility] Comment on above: Performed By: #### C BC #### [facility] [address] [place] [address] Dr. Hubert Novak MCHC (RBC) [Mass/Vol] 32.1 g/dL Normal 29.9-35.2 [facility] Comment on above: Performed By: #### C BC #### [facility] [address] [address] [address] Hubert Novak MCV (RBC) [Entitic vol] 84.3 fL Normal 81.0-99.0 [facility] Comment on above: Performed By: #### C BC #### [facility] [address] [place] [address] Dr. Hubert Novak MONO # 0.7 103/ul Normal 0.3-0.8 [facility] Comment on above: Performed By: #### C BC #### [facility] [address] [place] [address] Dr. Hubert Novak Monocytes/100 WBC (Bld) 5.9 % Normal 1.7-12.0 [facility] Comment on above: Performed By: #### C BC #### [facility] [address] [place] [address] Dr. Hubert Novak NEUT # 8.7 103/ul Critically high 1.4-6.5 [facility] Comment on above: Performed By: #### C BC #### [facility] [address] [place] [address] Dr. Hubert Novak Neutrophils/100 WBC (Bld) 75.1 % Critically high 43.0- 75.0 [facility] Comment on above: Performed By: #### C BC #### [facility] [address] [place] [address] Dr. Hubert Novak Platelet mean volume (Bld) [Entitic vol] 8.1 fL Critically low 9.5-13.5 [facility] Comment on above: Performed By: #### C BC #### [facility] [address] [place] [address] Dr. Hubert Novak PLT 493 103/ul Critically high 150-450 [facility] Comment on above: Performed By: #### C BC #### [facility] [address] [place] [address] Dr. Hubert Novak RBC 4.65 106/ul Normal 4.20-5.40 [facility] Comment on above: Performed By: #### C BC #### [facility] [address] [place] [address] Dr. Hubert Novak WBC 11.6 103/ul Critically high 4.0-11.0 [facility] Comment on above: Performed By: #### C BC #### [facility] [address] [address] [address] Hubert Novak GLYCOHEMOGLOBIN A1Con 2021 ADA RECOMMENDATION SEE BELOW Normal [facility] Comment on above: Result Comment: ADA RECOMMENDED LIMIT 4.0 - 6.0 ADA THERAPEUTIC TARGET < 7.0 ACTION SUGGESTED > 7.0 Performed By: #### A 1C #### [facility] [address] [address] [address] Hubert Novak Glucose [Mass/Vol] 100 mg/dL Normal [facility] Comment on above: Performed By: #### A 1C #### [facility] [address] [address] [address] Hubert Novak HbA1c (Bld) [Mass fraction] 5.1 % Normal 4.5-6.2 [facility] Comment on above: Performed By: #### A 1C #### [facility] [address] [address] [address] Hubert Novak LIPID PROFILEon 04-15-2022 CHOL-HDL RATIO NORM SEE BELOW Normal [facility] Comment on above: Result Comment: 3.3 - 4.4 LOW RISK 4.4 - 7.1 AVERAGE RISK 7.1 - 11.0 MODERATE RISK >11.0 HIGH RISK Performed By: #### R SPLUS #### [facility] [address] [address] [address] Hubert Novak Cholesterol [Mass/Vol] 171 mg/dL Normal <=200 Th [facility] Comment on above: Performed By: #### R SPLUS #### [facility] [address] [address] [address] Hubert Novak Cholesterol in HDL [Mass/Vol] 62 mg/dL Critically high 40-60 [facility] Comment on above: Performed By: #### R SPLUS #### [facility] [address] [address] [address] Hubert Novak Cholesterol in LDL [Mass/Vol] 89.8 mg/dL Normal [facility] Comment on above: Performed By: #### R SPLUS #### [facility] [address] [address] [address] Hubert Novak Cholesterol.total/Cholest jaxson in HDL [Mass ratio] 2.8 {ratio} Normal [facility] Comment on above: Performed By: #### R SPLUS #### [facility] [address] [address] [address] Hubert Novak HDL NORMAL > or = 60 mg/dl - LOW CARDIOVASCULAR RISK <40 mg/dl - HIGH CARDIOVASCULAR RISK Normal [facility] Comment on above: Performed By: #### R SPLUS #### [facility] [address] [place] [address] Dr. Hubert Novak LDL CALC NORMAL SEE BELOW Normal [facility] Comment on above: Result Comment: <100 mg/dl OPTIMAL 100 - 129 mg/dl NEAR OR ABOVE OPTIMAL 130 - 159 mg/dl BORDERLINE HIGH 160 - 189 mg/dl HIGH >190 mg/dl VERY HIGH Performed By: #### R SPLUS #### [facility] [address] [address] [address] Hubert Novak Triglyceride [Mass/Vol] 96 mg/dL Normal <=150 T [facility] Comment on above: Performed By: #### R SPLUS #### [facility] [address] [place] [address] Dr. Hubert Novak VLDL CALC 19.2 mg/dL Normal [facility] Comment on above: Performed By: #### R SPLUS #### [facility] [address] [address] [address] Hubert Novak PROF 14(COMP METB)on 022 Albumin [Mass/Vol] 3.7 g/dL Normal 3.4-5.0 [facility] Comment on above: Performed By: #### R SPLUS #### [facility] [address] [place] [address] Dr. Hubert Novak Albumin/Globulin [Mass ratio] 0.9 {ratio} Normal [facility] Comment on above: Performed By: #### R SPLUS #### [facility] [address] [address] [address] Hubert Novak ALP [Catalytic activity/Vol] 88 U/L Normal 46-116 [facility] Comment on above: Performed By: #### R SPLUS #### [facility] [address] [address] [address] Hubert Novak ALT [Catalytic activity/Vol] 15 U/L Normal 14-59 [facility] Comment on above: Performed By: #### R SPLUS #### [facility] [address] [address] [address] Hubert Novak Anion gap [Moles/Vol] 11.6 mmol/L Normal Th [facility] Comment on above: Performed By: #### R SPLUS #### [facility] [address] [place] [address] Dr. Hubert Novak AST [Catalytic activity/Vol] 9 U/L Critically low 15-37 [facility] Comment on above: Performed By: #### R SPLUS #### [facility] [address] [place] [address] Dr. Hubert Novak Bilirubin [Mass/Vol] 0.3 mg/dL Normal 0.2-1.0 [facility] Comment on above: Performed By: #### R SPLUS #### [facility] [address] [place] [address] Dr. Hubert Novak Calcium [Mass/Vol] 9.3 mg/dL Normal 8.5-10.1 [facility] Comment on above: Performed By: #### R SPLUS #### [facility] [address] [place] [address] Dr. Hubert Novak Chloride [Moles/Vol] 103 mmol/L Normal 98-107 [facility] Comment on above: Performed By: #### R SPLUS #### [facility] [address] [address] [address] Hubert Novak CO2 [Moles/Vol] 27.6 mmol/L Normal 21.0-32.0 [facility] Comment on above: Performed By: #### R SPLUS #### [facility] [address] [address] [address] Hubert Novak Creatinine [Mass/Vol] 0.60 mg/dL Normal 0.55-1.02 [facility] Comment on above: Performed By: #### R SPLUS #### [facility] [address] [place] [address] Dr. Hubert Novak EGFR-AF PUERTO RICAN >60 Normal >=60 [facility] Comment on above: Performed By: #### R SPLUS #### [facility] [address] [address] [address] Hubert Novak EGFR-NON AF PUERTO RICAN >60 Normal >=60 [facility] Comment on above: Performed By: #### R SPLUS #### [facility] [address] [address] [address] Hubert Novak Globulin (S) [Mass/Vol] 4.0 g/dL Normal T [facility] Comment on above: Performed By: #### R SPLUS #### [facility] [address] [place] [address] Dr. Hubert Novak Glucose [Mass/Vol] 94 mg/dL Normal 74-106 [facility] Comment on above: Performed By: #### R SPLUS #### [facility] [address] [place] [address] Dr. Hubert Novak Potassium [Moles/Vol] 4.2 mmol/L Normal 3.5-5.1 [facility] Comment on above: Performed By: #### R SPLUS #### [facility] [address] [place] [address] Dr. Hubert Novak Protein [Mass/Vol] 7.7 g/dL Normal 6.4-8.2 [facility] Comment on above: Performed By: #### R SPLUS #### [facility] [address] [place] [address] Dr. Hubert Novak Sodium [Moles/Vol] 138 mmol/L Normal 136-145 [facility] Comment on above: Performed By: #### R SPLUS #### [facility] [address] [place] [address] Dr. Hubert Novak Urea nitrogen [Mass/Vol] 9.0 mg/dL Normal 7.0-18.0 [facility] Comment on above: Performed By: #### R SPLUS #### [facility] [address] [place] [address] Dr. Hubert Novak Urea nitrogen/Creatinine [Mass ratio] 15.0 mg/mg Normal [facility] Comment on above: Performed By: #### R SPLUS #### [facility] [address] [place] [address] Dr. Hubert Novak THYROID PEROXIDASE ABon 03-15 Thyroid Peroxidase (TPO) Ab >600 Critically high 0-34 [facility] Comment on above: Performed By: #### T POAB #### [facility] [address] [place] [address] Dr. Hubert Novak FREE T4on 04-03-2022 Free T4 [Mass/Vol] 0.77 ng/dL Normal 0.76-1.46 [facility] Comment on above: Performed By: #### R SPLUS #### [facility] [address] [place] [address] Dr. Hubert Novak TSHon 04-03-2022 TSH 9.309 uIU/mL Critically high 0.358-3.740 [facility] Comment on above: Performed By: #### T SH #### [facility] [address] [place] [address] Dr. Hubert Novak Vital Signs Date Time Vital Sign Value Performing Clinician Faci lity 08-11-2023 12:37-0500 Diastolic blood pressure 79 mm[Hg] [facility] Red Shammo Work Phone: [facility] 08-11-2023 12:37-0500 Heart rate 68 /min [facility] Work Phone: [facility] 08-11-2023 12:37-0500 Respiratory rate 18 /min [facility]- [facility] Work Phone: [facility] 08-11-2023 12:37-0500 SaO2% (BldA) [Mass fraction] 96 % [facility] Red Shammo Work Phone: [facility] 08-11-2023 12:37-0500 Systolic blood pressure 158 mm[Hg] [facility] Red Shammo Work Phone: [facility] 08-11-2023 10:16-0500 Body height 165.1 cm [employer]-[facility] Red Shammo Work Phone: [facility] 08-11-2023 10:16-0500 Body weight 104 kg [facility] Work Phone: [facility] 08-11-2023 10:15-0500 Body temperature 98 [degF] [facility] Work Phone: [facility] Encounters Encounter Date Encounter Type Care Provider Facility Start: 08-11-2023 End: 08-11-2023 Emergency department patient visit Wendy Frazier Facility:[facility] Start: 08-11-2023 End: 08-11-2023 Emergency department patient visit [facility] Red [facility]ammo Work Phone: [facility] Work Phone: Start: 11-06-2022 End: 11-07-2022 ambulatory RED SHAMMO Facility:[facility] Start: 07-03-2022 End: 07-03-2022 ambulatory RED SHAMMO Facility:[facility] Start: 07-01-2022 End: 07-02-2022 ambulatory RED SHAMMO Facility:[facility] Start: 06-25-2022 End: 06-26-[address] ANGEL LUIS ALEJANDRA Facility:[facility] Start: 04-17-2022 Encounter for genera l adult medical examination without abnormal findings RED SHAMMO [facility] Start: 04-15-2022 End: 04-16-2022 ambulatory RED SHAMMO Facility:[facility] Start: 04-15-2022 End: 04-16-2022 Encounter for general adult medical examination without abnormal findings RED SHAMMO Facility:[facility] Start: 04-03-2022 End: 04-04-[address] DOCTOR FRAIRE Facility:[facility] Plan of Treatment Date Care Activity Detail Author Start: 12-12-2022 ambulatory Ambulatory Facility:[facility] Patient Education Nausea and Vom iting, Adult (DC) [facility] Work Phone: Patient referral [facility] Work Phone: Payers Date Payer Category Payer Self-pay 2023 Unknown [id number] 1992 Unknown [id number] 1992 Unknown [id number] 1992 Unknown [id number] 1992 Unknown [id number] 1992 Unknown [id number] 1992 Unknown [id number] 1992 Unknown [id number] 1959 Self-pay [id number] 1959 Unknown [id number] Private Health [facility] [employer] [id number] Unknown [id number] Social History Date Type Detail Facility Start: [facility] Start: 1990 Sex Assigned At Female F [facility] Evaluation note Note Date & Type Note Facility Evaluation note No assessment information availa ble [facility] Work Phone: Hospital Discharge instructions Note [...] you develop any worsening or concerning symptoms. [facility] Work Phone: Summary Purpose Family History [...] DATE CREATED AUTHOR 'S ORGANIZ ATION 08/21/2023 [facility] Care Teams (unrecognized sec tion and content) Team Status: Active Member Role Status Dates [facility] Primary Care Provider Active Team Status: Inactive Member Role Status Dates [facility] Primary Care Provider Active Start: August 11, [...] BE BASED ON THE PRIMARY CLINICAL RECORDS. [employer] provides no warranty or guarantee of the accuracy or completeness of information in this document.
[2024-03-02 11:44] LABS: Thyroid Stimulating Hormone 1.347 uIU/mL (0.358-3.740)
[2024-03-02 12:15] LABS: Free T4 1.03 ng/dL (0.76-1.46)
[2024-03-03 17:09] LABS: Thyroglobulin Antibody 1.1 IU/mL (0.0-0.9); Thyroid Peroxidase (TPO) Ab 534 IU/mL (0-34)
== END 2024-03-02 10:34 | disposition home or self-care (01) ==
LOC: LAB 10:35
PROVIDERS: PCP Nurse Practitioner
DX: E06.3 Autoimmune thyroiditis (principal); E04.1 Nontoxic single thyroid nodule; E04.9 Nontoxic goiter, unspecified
CPT/HCPCS: 36415; 84439; 84443; 86376; 86800

== ENCOUNTER 2024-03-02 10:47 | Outpatient (OUT) | payer BC, SELFPAY ==
--- NOTE | 2024-03-02 10:49 | US_ITS ---
The [address] [address] Patient Name: GABBI BURTON MRN: [id number] date: 1990 Sex: F Assigned Patient Location: [place] Current Patient Location: [place] Accession/Order Number: [id number] Exam Date: 03/02/2024 10:50 Report Date: 03/02/2024 16:20 At the request of: EMERALD MENESES Procedure: US thyroid EXAMINATION: US thyroid HISTORY: Kelsi's Thyroiditis, Thyroid Nodule COMPARISON: No relevant comparison available. TECHNIQUE: Sonographic images of the thyroid gland were obtained. FINDINGS: The right thyroid lobe measures 4.6 x 1.2 x 1.8 cm. Heterogeneous echotexture with no significant nodules. The thyroid isthmus is thickened measuring 6 mm heterogeneous. No focal nodule The left thyroid lobe measures 4.6 x 2.1 x 1.5 cm. Heterogeneous echotexture. Single nodule. Nodule 1:1.0 x 0.6 x 0.6 cm. Solid, hyperechoic, wide, smooth margins, no consultations. TR 3 US/US thyroid IMPRESSION: Heterogeneous thyroid gland with slight increase in size of a now 1 cm left thyroid TR 3 nodule TI-RADS: The [employer] TI-RADS committee's white paper recommendations for thyroid lesions classified as TR3 (mildly suspicious) are listed below: > 1.5 cm. Follow-up ultrasound in 1, 3, and 5 years. > 2.5 cm. FNA. J. Am Rudy Radiol 2017;14:587-595. Electronically authenticated by: BRIAN BARBER Date: 03/02/2024 16:20
--- OUTSIDE RECORDS SUMMARY | 2024-03-02 11:07 | XMS_ITS | CCD ---
Author Organization [facility] Care Team Providers Care Refinery Operator Helper Name Role Phone SHAMMO, RED Admitting Unavailable [...] Attending Unavailable SHAMMO, RED Consulting Unavailable Shammo, MECHANICAL MAINTENANCE WORKER- Red T Primary Care Provider [phone] DO Wendy Frazier Emergency Provider Wendy Frazier Attending Unavailable Wendy Frazier Admitting Unavailable Shammo, Red T Primary Care Unavailable Allergies Allergy Classification Reported Allergen(s) Allergy Type Date of Onset Reaction(s) Facility (1 source) Pseudoephedrine Drug Allergy [address] [place] [address] Repository Medications Current Medications Medication Drug Class(es) [...] 08-11-2023 ALT [Catalytic activity/Vol] 9 U/L 7-52 [facility] Albumin [Mass/volume] in Ser um or Plasma by Bromocresol green (BCG) dye binding methoOrdered By: Wendy Frazier on 08-11-2023 Albumin BCG dye [Mass/Vol] 4.5 g/dL 3.5-5.7 [facility] Alkaline phosphatase [Enzyma tic activity/volume] in Serum or PlasmaOrdered By: Wendy Frazier on 08-11-2023 ALP [Catalytic activity/Vol] 86 U/L 34-104 [facility] Aspartate aminotransferase [ Enzymatic activity/volume] in Serum or PlasmaOrdered By: Wendy Frazier on 08-11-2023 AST [Catalytic activity/Vol] 12 U/L 13-39 [facility] Basic Metabolic Panelon 07-15 Anion gap [Moles/Vol] 10.1 mmol/L Normal 6.0-15.0 [facility] Comment on above: Performed By: #### H EPATIC, CBC, BMP, LIPASE, HCGQUAL #### [facility] [address] [place] [address] [place] Calcium [Mass/Vol] 9.6 mg/dL Normal 8.6-10.3 [facility] Comment on above: Performed By: #### H EPATIC, CBC, BMP, LIPASE, HCGQUAL #### [facility] [address] [place] [place] [id number] [place] Chloride [Moles/Vol] 109 mmol/L High 98-107 [facility] Comment on above: Performed By: #### H EPATIC, CBC, BMP, LIPASE, HCGQUAL #### [address] CO2 [Moles/Vol] 21.5 mmol/L Normal 21.0-31.0 [facility] Comment on above: Performed By: #### H EPATIC, CBC, BMP, LIPASE, HCGQUAL #### [address] Creatinine [Mass/Vol] 0.75 mg/dL Normal 0.60-1.20 [facility] Comment on above: Performed By: #### H EPATIC, CBC, BMP, LIPASE, HCGQUAL #### [address] Creatinine Clr Calc Pharmacy 130.05 [facility] Comment on above: Performed By: #### H EPATIC, CBC, BMP, LIPASE, HCGQUAL #### [address] GFR/1.73 sq M.predicted MDRD (S/P/Bld) [Vol rate/Area] mL/min/{1.73_m2} [facility] Comment on above: Performed By: #### H EPATIC, CBC, BMP, LIPASE, HCGQUAL #### [address] Glucose [Mass/Vol] 92 mg/dL Normal 70-100 [facility] Comment on above: Result Comment: [place] Glucose Reference Range is dependent on time and content of last meal. Glucose of more than 200 mg/dL in a nonstressed, ambulatory subject supports the diagnosis of Diabetes Mellitus. ADA recommended reference range Performed By: #### H EPATIC, CBC, BMP, LIPASE, HCGQUAL #### [address] Potassium [Moles/Vol] 4.6 mmol/L Normal 3.5-5.1 [facility] Comment on above: Performed By: #### H EPATIC, CBC, BMP, LIPASE, HCGQUAL #### [facility] [address] [place] [place] [id number] [place] Sodium [Moles/Vol] 136 mmol/L Normal 136-145 [facility] Comment on above: Performed By: #### H EPATIC, CBC, BMP, LIPASE, HCGQUAL #### [facility] [address] [place] [id number] [facility] Urea nitrogen [Mass/Vol] 11 mg/dL Normal 7-25 [facility] Comment on above: Performed By: #### H EPATIC, CBC, BMP, LIPASE, HCGQUAL #### [facility] [address] Basophils Auto (Bld) [#/Vol] Ordered By: Wendy Frazier on 08-11-2023 Basophils (Bld) [#/Vol] 0.1 10*3/uL 0.0-0.2 [facility] Basophils/100 WBC Auto (Bld) Ordered By: Wendy Frazier on 08-11-2023 Basophils/100 WBC (Bld) 1.1 % . [facility] Bilirubin Test strip Ql (U)O rdered By: Wendy Frazier on 08-11-2023 Bilirubin Ql (U) Negative Negative [facility] Bilirubin.direct [Mass/volum e] in Serum or PlasmaOrdered By: Wendy Frazier on 08-11-2023 Bilirubin.direct [Mass/Vol] 0.10 mg/dL 0.03-0.18 [facility] Bilirubin.total [Mass/volume ] in Serum or PlasmaOrdered By: Wendy Frazier on 08-11-2023 Bilirubin [Mass/Vol] 0.3 mg/dL 0.3-1.0 [facility] Calcium [Mass/volume] in Ser um or PlasmaOrdered By: Wendy Frazier on 08-11-2023 Calcium [Mass/Vol] 9.6 mg/dL 8.6-10.3 [facility] Carbon dioxide, total [Moles /volume] in Serum or PlasmaOrdered By: Wendy Frazier on 08-11-2023 CO2 [Moles/Vol] 21.5 mmol/L 21.0-31.0 [facility] Chloride [Moles/volume] in S rodolfo or PlasmaOrdered By: Wendy Frazier on 08-11-2023 Chloride [Moles/Vol] 109 mmol/L 98-107 [facility] Choriogonadotropin.beta subu nit [Units/volume] in Serum or PlasmaOrdered By: Wendy Frazier on 08-11-2023 HCG.beta subunit Qn Negative [facility] Color Auto (U)Ordered By: Balaji Frazier on 08-11-2023 Color (U) Yellow Yellow [facility] Complete Blood Count Auto Di ffon 08-11-2023 Basophils (Bld) [#/Vol] 0.1 10*3/uL Normal 0.0-0.2 [facility] Comment on above: Result Comment: PERF ORMED BY: [place] [address] PATHOLOGIST USABILITY ARCHITECT GLADYS RUBY M.D. Performed By: #### H EPATIC, CBC, BMP, LIPASE, HCGQUAL #### [address] Basophils/100 WBC (Bld) 1.1 % Normal . [facility] Comment on above: Performed By: #### H EPATIC, CBC, BMP, LIPASE, HCGQUAL #### [address] Eosinophils (Bld) [#/Vol] 0.2 10*3/uL Normal 0.0-0.45 [facility] Comment on above: Performed By: #### H EPATIC, CBC, BMP, LIPASE, HCGQUAL #### [address] Eosinophils/100 WBC (Bld) 1.3 % Normal . [facility] Comment on above: Performed By: #### H EPATIC, CBC, BMP, LIPASE, HCGQUAL #### [address] Erythrocyte distribution width (RBC) [Ratio] 14.1 % Normal 11.9-15.3 [facility] Comment on above: Performed By: #### H EPATIC, CBC, BMP, LIPASE, HCGQUAL #### [address] Hematocrit (Bld) [Volume fraction] 40.6 % Normal 34.0-46.4 [facility] Comment on above: Performed By: #### H EPATIC, CBC, BMP, LIPASE, HCGQUAL #### [address] Hemoglobin (Bld) [Mass/Vol] 13.3 g/dL Normal 11.8-15.4 [facility] Comment on above: Performed By: #### H EPATIC, CBC, BMP, LIPASE, HCGQUAL #### [address] Lymphocytes (Bld) [#/Vol] 1.8 10*3/uL Normal 1.00-4.8 [facility] Comment on above: Performed By: #### H EPATIC, CBC, BMP, LIPASE, HCGQUAL #### [address] Lymphocytes/100 WBC (Bld) 13.3 % Normal . [facility] Comment on above: Performed By: #### H EPATIC, CBC, BMP, LIPASE, HCGQUAL #### [address] MCH (RBC) [Entitic mass] 27.2 pg Normal 24.7-34.3 [facility] Comment on above: Performed By: #### H EPATIC, CBC, BMP, LIPASE, HCGQUAL #### [address] MCV (RBC) [Entitic vol] 82.9 fL Normal 80-100 [facility] Comment on above: Performed By: #### H EPATIC, CBC, BMP, LIPASE, HCGQUAL #### [address] Mean Corpuscular HGB Conc 32.9 g/dL Normal 32.0-35.0 [facility] Comment on above: Performed By: #### H EPATIC, CBC, BMP, LIPASE, HCGQUAL #### [address] Monocytes (Bld) [#/Vol] 0.9 10*3/uL High 0.0-0.8 [facility] Comment on above: Performed By: #### H EPATIC, CBC, BMP, LIPASE, HCGQUAL #### [address] Monocytes/100 WBC (Bld) 16.34 % Normal 0.00-20.00 [facility] Comment on above: Performed By: #### H EPATIC, CBC, BMP, LIPASE, HCGQUAL #### [address] Monocytes/100 WBC (Bld) 7.0 % Normal . [facility] Comment on above: Performed By: #### H EPATIC, CBC, BMP, LIPASE, HCGQUAL #### [address] Neutrophils (Bld) [#/Vol] 10.3 10*3/uL High 1.8-7.7 [facility] Comment on above: Performed By: #### H EPATIC, CBC, BMP, LIPASE, HCGQUAL #### [address] Neutrophils/100 WBC (Bld) 77.3 % Normal . [facility] Comment on above: Performed By: #### H EPATIC, CBC, BMP, LIPASE, HCGQUAL #### [address] NRBC% 0.1 /100{WBC} Normal 0-0.5 [facility] Comment on above: Performed By: #### H EPATIC, CBC, BMP, LIPASE, HCGQUAL #### [address] Platelet mean volume (Bld) [Entitic vol] 6.7 fL Normal 6.3-10.7 [facility] Comment on above: Performed By: #### H EPATIC, CBC, BMP, LIPASE, HCGQUAL #### [facility] [address] Platelets (Bld) [#/Vol] 560 10*3/uL High 150-450 [facility] Comment on above: Performed By: #### H EPATIC, CBC, BMP, LIPASE, HCGQUAL #### [facility] [address] RBC (Bld) [#/Vol] 4.90 10*6/uL Normal 3.60-5.00 [facility] Comment on above: Performed By: #### H EPATIC, CBC, BMP, LIPASE, HCGQUAL #### [facility] [address] WBC (Bld) [#/Vol] 13.2 10*3/uL High 3.8-11.6 [facility] Comment on above: Performed By: #### H EPATIC, CBC, BMP, LIPASE, HCGQUAL #### [facility] [address] Creatinine [Mass/volume] in Serum or PlasmaOrdered By: Wendy Frazier on 08-11-2023 Creatinine [Mass/Vol] 0.75 mg/dL 0.60-1.20 [facility] Eosinophils Auto (Bld) [#/Vo l]Ordered By: Wendy Frazier on 08-11-2023 Eosinophils (Bld) [#/Vol] 0.2 10*3/uL 0.0-0.45 [facility] Eosinophils/100 WBC Auto (Bl d)Ordered By: Wendy Frazier on 08-11-2023 Eosinophils/100 WBC (Bld) 1.3 % . [facility] Erythrocyte distribution wid th Auto (RBC) [Ratio]Ordered By: Wendy Frazier on 08-11-2023 Erythrocyte distribution width (RBC) [Ratio] 14.1 % 11.9-15.3 [facility] Globulin Calc (S) [Mass/Vol] Ordered By: Wendy Frazier on 08-11-2023 Globulin (S) [Mass/Vol] 2.8 g/dL [facility] Glucose [Mass/volume] in Ser um or PlasmaOrdered By: Wendy Frazier on 08-11-2023 Glucose [Mass/Vol] 92 mg/dL 70-100 [facility] Comment on above: ADA recommended refe rence rangeRandom Glucose Reference Range is dependent on time and content of last meal. Glucose of more than 200 mg/dL in a nonstressed, ambulatory subject supports the diagnosis of Diabetes Mellitus. HCG,Qualitative Serumon 07-15 HCG,Qualitative Serum Negative Normal [facility] Comment on above: Result Comment: PERF ORMED BY: [place] [address] PATHOLOGIST USABILITY ARCHITECT GLADYS RUBY M.D. Performed By: #### H EPATIC, CBC, BMP, LIPASE, HCGQUAL #### [address] Hematocrit Auto (Bld) [Volum e fraction]Ordered By: Wendy Frazier on 08-11-2023 Hematocrit (Bld) [Volume fraction] 40.6 % 34.0-46.4 [facility] Hemoglobin [Mass/volume] in BloodOrdered By: Wendy Frazier on 08-11-2023 Hemoglobin (Bld) [Mass/Vol] 13.3 g/dL 11.8-15.4 [facility] Hepatic Panelon 08-11-2023 Albumin [Mass/Vol] 4.5 g/dL Normal 3.5-5.7 [facility] Comment on above: Performed By: #### H EPATIC, CBC, BMP, LIPASE, HCGQUAL #### [facility] [address] [place] [address] Albumin/Globulin [Mass ratio] 1.6 {ratio} Normal [facility] Comment on above: Performed By: #### H EPATIC, CBC, BMP, LIPASE, HCGQUAL #### [facility] [address] [place] [address] ALP [Catalytic activity/Vol] 86 U/L Normal 34-104 [facility] Comment on above: Performed By: #### H EPATIC, CBC, BMP, LIPASE, HCGQUAL #### [address] ALT [Catalytic activity/Vol] 9 U/L Normal 7-52 [facility] Comment on above: Performed By: #### H EPATIC, CBC, BMP, LIPASE, HCGQUAL #### [address] AST [Catalytic activity/Vol] 12 U/L Low 13-39 [facility] Comment on above: Performed By: #### H EPATIC, CBC, BMP, LIPASE, HCGQUAL #### [address] Bilirubin [Mass/Vol] 0.3 mg/dL Normal 0.3-1.0 [facility] Comment on above: Performed By: #### H EPATIC, CBC, BMP, LIPASE, HCGQUAL #### [address] Bilirubin,Indirect 0.2 mg/dL Normal [facility] Comment on above: Performed By: #### H EPATIC, CBC, BMP, LIPASE, HCGQUAL #### [address] Bilirubin.indirect [Mass/Vol] 0.10 mg/dL Normal 0.03-0.18 [facility] Comment on above: Performed By: #### H EPATIC, CBC, BMP, LIPASE, HCGQUAL #### [address] Globulin (S) [Mass/Vol] 2.8 g/dL Normal [facility] Comment on above: Performed By: #### H EPATIC, CBC, BMP, LIPASE, HCGQUAL #### [address] Protein [Mass/Vol] 7.3 g/dL Normal 6.4-8.9 [facility] Comment on above: Performed By: #### H EPATIC, CBC, BMP, LIPASE, HCGQUAL #### [address] Ketones Auto test strip (U) [Mass/Vol]Ordered By: Wendy Frazier on 08-11-2023 Ketones (U) [Mass/Vol] Negative Negative Fi [facility] Leukocytes [#/volume] correc nina for nucleated erythrocytes in Blood by Automated counOrdered By: Wendy Frazier on 08-11-2023 WBC corrected for nucl RBC Auto (Bld) [#/Vol] 13.2 10*3/uL 3.8-11.6 [facility] Lipaseon 08-11-2023 Lipase [Catalytic activity/Vol] 23.0 U/L Normal 11.0-82.0 [facility] Comment on above: Performed By: #### H EPATIC, CBC, BMP, LIPASE, HCGQUAL #### [facility] [address] Lipase [Enzymatic activity/v olume] in Serum or PlasmaOrdered By: Wendy Frazier on 08-11-2023 Lipase [Catalytic activity/Vol] 23.0 U/L 11.0-82.0 [facility] Lymphocytes Auto (Bld) [#/Vo l]Ordered By: Wendy Frazier on 08-11-2023 Lymphocytes (Bld) [#/Vol] 1.8 10*3/uL 1.00-4.8 [facility] Lymphocytes/100 WBC Auto (Bl d)Ordered By: Wendy Frazier on 08-11-2023 Lymphocytes/100 WBC (Bld) 13.3 % . [facility] MCH Auto (RBC) [Entitic mass ]Ordered By: Wendy Frazier on 08-11-2023 MCH (RBC) [Entitic mass] 27.2 pg 24.7-34.3 [facility] MCHC Auto (RBC) [Mass/Vol]Or dered By: Wendy Frazier on 08-11-2023 MCHC (RBC) [Mass/Vol] 32.9 g/dL 32.0-35.0 [facility] MCV Auto (RBC) [Entitic vol] Ordered By: Wendy Frazier on 08-11-2023 MCV (RBC) [Entitic vol] 82.9 fL 80-100 [facility] Monocyte distribution width [Entitic volume] in Blood by AutomatedOrdered By: Wendy Frazier on 08-11-2023 Monocyte distribution width Auto (Bld) [Entitic vol] 16.34 % 0.00-20.00 [facility] Monocytes Auto (Bld) [#/Vol] Ordered By: Wendy Frazier on 08-11-2023 Monocytes (Bld) [#/Vol] 0.9 10*3/uL 0.0-0.8 [facility] Monocytes/100 WBC Auto (Bld) Ordered By: Wendy Frazier on 08-11-2023 Monocytes/100 WBC (Bld) 7.0 % . [facility] Neutrophils Auto (Bld) [#/Vo l]Ordered By: Wendy Frazier on 08-11-2023 Neutrophils (Bld) [#/Vol] 10.3 10*3/uL 1.8-7.7 [facility] Neutrophils/100 WBC Auto (Bl d)Ordered By: Wendy Frazier on 08-11-2023 Neutrophils/100 WBC (Bld) 77.3 % . [facility] Nitrite Test strip Ql (U)Ord ered By: Wendy Frazier on 08-11-2023 Nitrite Ql (U) Negative Negative [facility] No Panel InformationOrdered By: Wendy Frazier on 08-11-2023 Estimated GFR (CKD-EPI) > 60.0 mL/Min [facility] Creatinine Clearance (Chem 130.05 [facility] Nucleated erythrocytes [Pres ence] in Blood by Automated countOrdered By: Wendy Frazier on 08-11-2023 Nucleated RBC Auto Ql (Bld) 0.1 /100{WBC} 0-0.5 [facility] Platelet mean volume Auto (B ld) [Entitic vol]Ordered By: Wendy Frazier on 08-11-2023 Platelet mean volume (Bld) [Entitic vol] 6.7 fL 6.3-10.7 [facility] Platelets Auto (Bld) [#/Vol] Ordered By: Wendy Frazier on 08-11-2023 Platelets (Bld) [#/Vol] 560 10*3/uL 150-450 [facility] Potassium [Moles/volume] in Serum or PlasmaOrdered By: Wendy Frazier on 08-11-2023 Potassium [Moles/Vol] 4.6 mmol/L 3.5-5.1 [facility] Protein Auto test strip (U) [Mass/Vol]Ordered By: Wendy Frazier on 08-11-2023 Protein (U) [Mass/Vol] Negative Negative [facility] Protein [Mass/volume] in Ser um or PlasmaOrdered By: Wendy Frazier on 08-11-2023 Protein [Mass/Vol] 7.3 g/dL 6.4-8.9 [facility] RBC Auto (Bld) [#/Vol]Ordere d By: Wendy Frazier on 08-11-2023 RBC (Bld) [#/Vol] 4.90 10*6/uL 3.60-5.00 [facility] Serum or plasma albumin/glob ulin mass ratioOrdered By: Wendy Frazier on 08-11-2023 Albumin/Globulin [Mass ratio] 1.6 {ratio} [facility] Serum or plasma anion gap de terminationOrdered By: Wendy Frazier on 08-11-2023 Anion gap [Moles/Vol] 10.1 mmol/L 6.0-15.0 [facility] Serum or plasma non-glucuron idated bilirubin measurement (mass/volume)Ordered By: Wendy Frazier on 08-11-2023 Bilirubin.indirect [Mass/Vol] 0.2 mg/dL [facility] Sodium [Moles/volume] in Ser um or PlasmaOrdered By: Wendy Frazier on 08-11-2023 Sodium [Moles/Vol] 136 mmol/L 136-145 [facility] Specific gravity Auto test s trip (U) [Rel density]Ordered By: Wendy Frazier on 08-11-2023 Specific gravity (U) [Rel density] 1.022 1.001-1.030 [facility] Urea nitrogen [Mass/volume] in Serum or PlasmaOrdered By: Wendy Frazier on 08-11-2023 Urea nitrogen [Mass/Vol] 11 mg/dL 7-25 [facility] Urinalysison 08-11-2023 Appearance (U) Clear Normal Clear [facility] Comment on above: Order Comment: Name Collection Type:: Voided Performed By: #### U A #### [facility] [address] [place] [address] Bilirubin,Urine Negative Normal Negative [facility] Comment on above: Order Comment: Name Collection Type:: Voided Performed By: #### U A #### [facility] [address] [place] [address] Color (U) Yellow Normal Yellow [facility] Comment on above: Order Comment: Name Collection Type:: Voided Performed By: #### U A #### [facility] [address] [place] [address] Glucose Ql (U) Normal Normal Normal [facility] Comment on above: Order Comment: Name Collection Type:: Voided Performed By: #### U A #### [address] Ketones Ql (U) Negative Normal Negative [facility] Comment on above: Order Comment: Name Collection Type:: Voided Performed By: #### U A #### [address] Leukocyte esterase Test strip Ql (U) Negative Normal Negative [facility] Comment on above: Order Comment: Name Collection Type:: Voided Performed By: #### U A #### [facility] [address] [place] [address] Nitrite,Urine Negative Normal Negative [facility] Comment on above: Order Comment: Name Collection Type:: Voided Performed By: #### U A #### [address] Occult Blood,Urine Negative Normal Negative [facility] Comment on above: Order Comment: Name Collection Type:: Voided Result Comment: PERF ORMED BY: [place] [address] PATHOLOGIST USABILITY ARCHITECT GLADYS RUBY M.D. Performed By: #### U A #### [address] pH (U) 5.0 [pH] Normal 5.0-9.0 [facility] Comment on above: Order Comment: Name Collection Type:: Voided Performed By: #### U A #### [facility] [address] [place] [address] Protein,Urine Negative Normal Negative [facility] Comment on above: Order Comment: Name Collection Type:: Voided Performed By: #### U A #### [facility] [address] [place] [address] Specificy Gilbert,Urine 1.022 Normal 1.001-1.030 [facility] Comment on above: Order Comment: Name Collection Type:: Voided Performed By: #### U A #### [facility] [address] [place] [address] Urobilinogen,Urine Normal Normal Normal [facility] Comment on above: Order Comment: Name Collection Type:: Voided Performed By: #### U A #### [facility] [address] [place] [address] Urine clarity by refractomet ry automatedOrdered By: Wendy Frazier on 08-11-2023 Clarity Refractometry automated (U) Clear Clear [facility] Urine glucose measurement by automated test strip (mass/volume)Ordered By: Wendy Frazier on 08-11-2023 Glucose Auto test strip (U) [Mass/Vol] Normal mg/dL Normal [facility] Urine hemoglobin detection b y automated test stripOrdered By: Wendy Frazier on 08-11-2023 Hemoglobin Auto test strip Ql (U) Negative Negative [facility] Urine leukocyte esterase det ection by automated test stripOrdered By: Wendy Frazier on 08-11-2023 Leukocyte esterase Auto test strip Ql (U) Negative Negative [facility] Urobilinogen Auto test strip (U) [Mass/Vol]Ordered By: Wendy Frazier on 08-11-2023 Urobilinogen (U) [Mass/Vol] Normal mg/dL Normal [facility] WBC Auto (Bld) [#/Vol]Ordere d By: Wendy Frazier on 08-11-2023 WBC (Bld) [#/Vol] 13.2 10*3/uL 3.8-11.6 [facility] pH Auto test strip (U)Ordere d By: Wendy Frazier on 08-11-2023 pH (U) 5.0 [pH] 5.0-9.[address] [facility] [address] NECK [address] W CONon 3 CT [...] acute sinusitis sinusitis. Electronically authenticated by: ANGEL ULIS ALEJANDRA Date: 2022-11-06 09:31 Normal [facility] RESPIRATORY PANEL PLUSon Adenovirus Not detected Normal NOT DETECTED [facility] Comment on above: Performed By: #### R SPLUS #### [facility] [address] [address] [address] Hubert Stearns. Parapertusis Not detected Normal NOT DETECTED [facility] Comment on above: Performed By: #### R SPLUS #### [facility] [address] [address] [address] Hubert Carlson Pertussis Not detected Normal NOT DETECTED [facility] Comment on above: Performed By: #### R SPLUS #### [facility] [address] [address] [address] Hubert Novak Chlamydia Pneumoniae Not detected Normal NOT DETECTED [facility] Comment on above: Performed By: #### R SPLUS #### [facility] [address] [place] [address] Dr. Hubert Novak Coronavirus 229E Not detected Normal NOT DETECTED [facility] Comment on above: Performed By: #### R SPLUS #### [facility] [address] [place] [address] Dr. Hubert Novak Coronavirus HKU1 Not detected Normal NOT DETECTED [facility] Comment on above: Performed By: #### R SPLUS #### [facility] [address] [address] [address] Hubert Novak Coronavirus NL63 Not detected Normal NOT DETECTED [facility] Comment on above: Performed By: #### R SPLUS #### [facility] [address] [place] [address] Dr. Hubert Novak Coronavirus OC43 Not detected Normal NOT DETECTED [facility] Comment on above: Performed By: #### R SPLUS #### [facility] [address] [place] [address] Dr. Hubert Novak Influenza A H1 2009 Not detected Normal NOT DETECTED [facility] Comment on above: Performed By: #### R SPLUS #### [facility] [address] [place] [address] Dr. Hubert Novak Influenza A H3 Not detected Normal NOT DETECTED [facility] Comment on above: Performed By: #### R SPLUS #### [facility] [address] [place] [address] Dr. Hubert Novak Influenza B Not detected Normal NOT DETECTED [facility] Comment on above: Performed By: #### R SPLUS #### [facility] [address] [place] [address] Dr. Hubetr Novak Metapneumovirus Not detected Normal NOT DETECTED [facility] Comment on above: Performed By: #### R SPLUS #### [facility] [address] [address] [address] Hubert Novak Mycoplas. Pneumoniae Not detected Normal NOT DETECTED [facility] Comment on above: Performed By: #### R SPLUS #### [facility] [address] [place] [address] Dr. Hubert Novak Parainfluenza 1 Not detected Normal NOT DETECTED The [facility] Comment on above: Performed By: #### R SPLUS #### [facility] [address] [place] [address] Dr. Hubert Novak Parainfluenza 2 Not detected Normal NOT DETECTED The [facility] Comment on above: Performed By: #### R SPLUS #### [facility] [address] [place] [address] Dr. Hubert Novak Parainfluenza 3 Not detected Normal NOT DETECTED The [facility] Comment on above: Performed By: #### R SPLUS #### [facility] [address] [place] [address] Dr. Hubert Novak Parainfluenza 4 Not detected Normal NOT DETECTED The [facility] Comment on above: Performed By: #### R SPLUS #### [facility] [address] [place] [address] Dr. Hubert Novak Rhino/Enterovirus Not detected Normal NOT DETECTED [facility] Comment on above: Performed By: #### R SPLUS #### [facility] [address] [place] [address] Dr. Hubert Novak RP2 Header 1 RESPIRATORY PANEL: VIRUSES Normal [facility] Comment on above: Performed By: #### R SPLUS #### [facility] [address] [place] [address] Dr. Hubert Novak RP2 Header 2 RESPIRATORY PANEL: BACTERIA Normal [facility] Comment on above: Performed By: #### R SPLUS #### [facility] [address] [place] [address] Dr. Hubert Novak RSV Not detected Normal NOT DETECTED The [facility] Comment on above: Performed By: #### R SPLUS #### [facility] [address] [place] [address] Dr. Hubert Novak SARS-CoV-2 (COVID-19) RNA GILMAR+probe Ql (Unsp spec) Not detected Normal NOT DETECTED The [facility] Comment on above: Performed By: #### R SPLUS #### [facility] [address] [address] [address] Hubert Novak FREE T3on 07-01-2022 FREE T3 2.15 pg/mlL Critically low 2.18-3.98 The [facility] Comment on above: Performed By: #### T SH, FT3 #### [facility] [address] [address] [address] Hubert Novak FREE T4on 07-01-2022 Free T4 [Mass/Vol] 1.17 ng/dL Normal 0.76-1.46 The [facility] Comment on above: Performed By: #### F T4 #### [facility] [address] [address] [address] Hubert Novak TSHon 07-01-2022 TSH 1.765 uIU/mL Normal 0.358-3.740 The [facility] Comment on above: Performed By: #### T SH, FT3 #### [facility] [address] [address] [address] Hubert Novak US THYROIDon 06-26-2022 US [...] LUIS ALEJANDRA Date: 2022-06-26 21:57 Normal [facility] HEPATITIS C AB CASCADE TO QU ANT PCR GENOon 04-16-2022 HCV AB <0.1 Normal 0.0-0.9 [facility] Comment on above: Performed By: #### R SPLUS #### [facility] [address] [place] [address] Dr. Hubert Novak Interpretation: Comment Normal The [facility] Comment on above: Result Comment: Nega tive Not infected with HCV, unless recent infection is suspected or other evidence exists to indicate HCV infection. Performed By: #### R SPLUS #### [facility] [address] [place] [address] Dr. Hubert Novak CBC AUTO DIFFon 04-15-2022 BASO # 0.1 103/ul Normal 0.0-0.1 [facility] Comment on above: Performed By: #### C BC #### [facility] [address] [place] [address] Dr. Hubert Novak Basophils/100 WBC (Bld) 0.8 % Normal 0.2-2.0 [facility] Comment on above: Performed By: #### C BC #### [facility] [address] [place] [address] Dr. Hubert Novak EO # 0.2 103/ul Normal 0.0-0.7 [facility] Comment on above: Performed By: #### C BC #### [facility] [address] [place] [address] Dr. Hubert Novak Eosinophils/100 WBC (Bld) 1.5 % Normal 0.9-7.0 [facility] Comment on above: Performed By: #### C BC #### [facility] [address] [place] [address] Dr. Hubert Novak Erythrocyte distribution width (RBC) [Ratio] 12.9 % Normal 11.0-15.0 [facility] Comment on above: Performed By: #### C BC #### [facility] [address] [place] [address] Dr. Hubert Novak Hematocrit (Bld) [Volume fraction] 39.2 % Normal 36.0-48.0 [facility] Comment on above: Performed By: #### C BC #### [facility] [address] [address] [address] Hubert Novak Hemoglobin (Bld) [Mass/Vol] 12.6 g/dL Normal 12.0-16.0 [facility] Comment on above: Performed By: #### C BC #### [facility] [address] [address] [address] Hubert Novak IG # 0.07 10e3/ul Critically high 0.00-0.03 [facility] Comment on above: Performed By: #### C BC #### [facility] [address] [address] [address] Hubert Novak IG % 0.6 % Critically high 0.0-0.5 [facility] Comment on above: Performed By: #### C BC #### [facility] [address] [place] [address] Dr. Hubert Novak LYMPH # 1.9 103/ul Normal 1.2-3.8 [facility] Comment on above: Performed By: #### C BC #### [facility] [address] [place] [address] Dr. Hubert Novak Lymphocytes/100 WBC (Bld) 16.1 % Critically low 20.5-6 0.0 [facility] Comment on above: Performed By: #### C BC #### [facility] [address] [place] [address] Dr. Hubert Novak MANUAL DIFF REQ NO Normal The [facility] Comment on above: Performed By: #### C BC #### [facility] [address] [address] [address] Hubert Novka MCH (RBC) [Entitic mass] 27.1 pg Normal 26.7-34.0 [facility] Comment on above: Performed By: #### C BC #### [facility] [address] [place] [address] Dr. Hubert Novak MCHC (RBC) [Mass/Vol] 32.1 g/dL Normal 29.9-35.2 [facility] Comment on above: Performed By: #### C BC #### [facility] [address] [address] [address] Hubert Novak MCV (RBC) [Entitic vol] 84.3 fL Normal 81.0-99.0 [facility] Comment on above: Performed By: #### C BC #### [facility] [address] [place] [address] Dr. Hubert Novak MONO # 0.7 103/ul Normal 0.3-0.8 [facility] Comment on above: Performed By: #### C BC #### [facility] [address] [place] [address] Dr. Hubert Novak Monocytes/100 WBC (Bld) 5.9 % Normal 1.7-12.0 [facility] Comment on above: Performed By: #### C BC #### [facility] [address] [place] [address] Dr. Hubert Novak NEUT # 8.7 103/ul Critically high 1.4-6.5 [facility] Comment on above: Performed By: #### C BC #### [facility] [address] [place] [address] Dr. Hubert Novak Neutrophils/100 WBC (Bld) 75.1 % Critically high 43.0- 75.0 [facility] Comment on above: Performed By: #### C BC #### [facility] [address] [place] [address] Dr. Hubert Novak Platelet mean volume (Bld) [Entitic vol] 8.1 fL Critically low 9.5-13.5 [facility] Comment on above: Performed By: #### C BC #### [facility] [address] [place] [address] Dr. Hubert Novak PLT 493 103/ul Critically high 150-450 [facility] Comment on above: Performed By: #### C BC #### [facility] [address] [place] [address] Dr. Hubert Novak RBC 4.65 106/ul Normal 4.20-5.40 [facility] Comment on above: Performed By: #### C BC #### [facility] [address] [place] [address] Dr. Hubert Novak WBC 11.6 103/ul Critically high 4.0-11.0 [facility] Comment on above: Performed By: #### C BC #### [facility] [address] [address] [address] Hubert Novak GLYCOHEMOGLOBIN A1Con 2021 ADA RECOMMENDATION SEE BELOW Normal [facility] Comment on above: Result Comment: ADA RECOMMENDED LIMIT 4.0 - 6.0 ADA THERAPEUTIC TARGET < 7.0 ACTION SUGGESTED > 7.0 Performed By: #### A 1C #### [facility] [address] [address] [address] Hubert Novak Glucose [Mass/Vol] 100 mg/dL Normal [facility] Comment on above: Performed By: #### A 1C #### [facility] [address] [address] [address] Hubert Novak HbA1c (Bld) [Mass fraction] 5.1 % Normal 4.5-6.2 [facility] Comment on above: Performed By: #### A 1C #### [facility] [address] [address] [address] Hubert Novak LIPID PROFILEon 04-15-2022 CHOL-HDL RATIO NORM SEE BELOW Normal [facility] Comment on above: Result Comment: 3.3 - 4.4 LOW RISK 4.4 - 7.1 AVERAGE RISK 7.1 - 11.0 MODERATE RISK >11.0 HIGH RISK Performed By: #### R SPLUS #### [facility] [address] [address] [address] Hubert Novak Cholesterol [Mass/Vol] 171 mg/dL Normal <=200 Th [facility] Comment on above: Performed By: #### R SPLUS #### [facility] [address] [address] [address] Hubert Novak Cholesterol in HDL [Mass/Vol] 62 mg/dL Critically high 40-60 [facility] Comment on above: Performed By: #### R SPLUS #### [facility] [address] [address] [address] Hubert Novak Cholesterol in LDL [Mass/Vol] 89.8 mg/dL Normal [facility] Comment on above: Performed By: #### R SPLUS #### [facility] [address] [address] [address] Hubert Novak Cholesterol.total/Cholest jaxson in HDL [Mass ratio] 2.8 {ratio} Normal [facility] Comment on above: Performed By: #### R SPLUS #### [facility] [address] [address] [address] Hubert Novak HDL NORMAL > or = 60 mg/dl - LOW CARDIOVASCULAR RISK <40 mg/dl - HIGH CARDIOVASCULAR RISK Normal [facility] Comment on above: Performed By: #### R SPLUS #### [facility] [address] [place] [address] Dr. Hubert Novak LDL CALC NORMAL SEE BELOW Normal [facility] Comment on above: Result Comment: <100 mg/dl OPTIMAL 100 - 129 mg/dl NEAR OR ABOVE OPTIMAL 130 - 159 mg/dl BORDERLINE HIGH 160 - 189 mg/dl HIGH >190 mg/dl VERY HIGH Performed By: #### R SPLUS #### [facility] [address] [address] [address] Hubert Novak Triglyceride [Mass/Vol] 96 mg/dL Normal <=150 T [facility] Comment on above: Performed By: #### R SPLUS #### [facility] [address] [place] [address] Dr. Hubert Novak VLDL CALC 19.2 mg/dL Normal [facility] Comment on above: Performed By: #### R SPLUS #### [facility] [address] [address] [address] Hubert Novak PROF 14(COMP METB)on 022 Albumin [Mass/Vol] 3.7 g/dL Normal 3.4-5.0 [facility] Comment on above: Performed By: #### R SPLUS #### [facility] [address] [place] [address] Dr. Hubert Novak Albumin/Globulin [Mass ratio] 0.9 {ratio} Normal [facility] Comment on above: Performed By: #### R SPLUS #### [facility] [address] [address] [address] Hubert Novak ALP [Catalytic activity/Vol] 88 U/L Normal 46-116 [facility] Comment on above: Performed By: #### R SPLUS #### [facility] [address] [address] [address] Hubert Novak ALT [Catalytic activity/Vol] 15 U/L Normal 14-59 [facility] Comment on above: Performed By: #### R SPLUS #### [facility] [address] [address] [address] Hubert Novak Anion gap [Moles/Vol] 11.6 mmol/L Normal Th [facility] Comment on above: Performed By: #### R SPLUS #### [facility] [address] [place] [address] Dr. Hubert Novak AST [Catalytic activity/Vol] 9 U/L Critically low 15-37 [facility] Comment on above: Performed By: #### R SPLUS #### [facility] [address] [place] [address] Dr. Hubert Novak Bilirubin [Mass/Vol] 0.3 mg/dL Normal 0.2-1.0 [facility] Comment on above: Performed By: #### R SPLUS #### [facility] [address] [place] [address] Dr. Hubert Novak Calcium [Mass/Vol] 9.3 mg/dL Normal 8.5-10.1 [facility] Comment on above: Performed By: #### R SPLUS #### [facility] [address] [place] [address] Dr. Hubert Novak Chloride [Moles/Vol] 103 mmol/L Normal 98-107 [facility] Comment on above: Performed By: #### R SPLUS #### [facility] [address] [address] [address] Hubert Novak CO2 [Moles/Vol] 27.6 mmol/L Normal 21.0-32.0 The [facility] Comment on above: Performed By: #### R SPLUS #### [facility] [address] [address] [address] Hubert Novak Creatinine [Mass/Vol] 0.60 mg/dL Normal 0.55-1.02 [facility] Comment on above: Performed By: #### R SPLUS #### [facility] [address] [place] [address] Dr. Hubert Novak EGFR-AF EQUATORIAL GUINEAN >60 Normal >=60 [facility] Comment on above: Performed By: #### R SPLUS #### [facility] [address] [address] [address] Hubert Novak EGFR-NON AF EQUATORIAL GUINEAN >60 Normal >=60 [facility] Comment on above: Performed By: #### R SPLUS #### [facility] [address] [address] [address] Hubert Novak Globulin (S) [Mass/Vol] 4.0 g/dL Normal T [facility] Comment on above: Performed By: #### R SPLUS #### [facility] [address] [place] [address] Dr. Hubert Novak Glucose [Mass/Vol] 94 mg/dL Normal 74-106 [facility] Comment on above: Performed By: #### R SPLUS #### [facility] [address] [place] [address] Dr. Hubert Novak Potassium [Moles/Vol] 4.2 mmol/L Normal 3.5-5.1 [facility] Comment on above: Performed By: #### R SPLUS #### [facility] [address] [place] [address] Dr. Hubert Novak Protein [Mass/Vol] 7.7 g/dL Normal 6.4-8.2 [facility] Comment on above: Performed By: #### R SPLUS #### [facility] [address] [place] [address] Dr. Hubert Novak Sodium [Moles/Vol] 138 mmol/L Normal 136-145 [facility] Comment on above: Performed By: #### R SPLUS #### [facility] [address] [place] [address] Dr. Hubert Novak Urea nitrogen [Mass/Vol] 9.0 mg/dL Normal 7.0-18.0 [facility] Comment on above: Performed By: #### R SPLUS #### [facility] [address] [place] [address] Dr. Hubert Novak Urea nitrogen/Creatinine [Mass ratio] 15.0 mg/mg Normal [facility] Comment on above: Performed By: #### R SPLUS #### [facility] [address] [place] [address] Dr. Hubert Novak THYROID PEROXIDASE ABon 03-15 Thyroid Peroxidase (TPO) Ab >600 Critically high 0-34 [facility] Comment on above: Performed By: #### T POAB #### [facility] [address] [place] [address] Dr. Hubert Novak FREE T4on 04-03-2022 Free T4 [Mass/Vol] 0.77 ng/dL Normal 0.76-1.46 [facility] Comment on above: Performed By: #### R SPLUS #### [facility] [address] [place] [address] Dr. Hubert Novak TSHon 04-03-2022 TSH 9.309 uIU/mL Critically high 0.358-3.740 [facility] Comment on above: Performed By: #### T SH #### [facility] [address] [place] [address] Dr. Hubert Novak Vital Signs Date Time Vital Sign Value Performing Clinician Faci lity 08-11-2023 12:37-0500 Diastolic blood pressure 79 mm[Hg] [facility] Rde Shammo Work Phone: [facility] 08-11-2023 12:37-0500 Heart rate 68 /min [facility]- Red Shammo Work Phone: [facility] 08-11-2023 12:37-0500 Respiratory rate 18 /min [facility]- Red Shammo Work Phone: [facility] 08-11-2023 12:37-0500 SaO2% (BldA) [Mass fraction] 96 % [facility] Red Shammo Work Phone: [facility] 08-11-2023 12:37-0500 Systolic blood pressure 158 mm[Hg] [facility] Rde Shammo Work Phone: [facility] 08-11-2023 10:16-0500 Body height 165.1 cm [employer] WORK[employer]-BC Red Shammo Work Phone: [facility] 08-11-2023 10:16-0500 Body weight 104 kg [facility]- Red Shammo Work Phone: [facility] 08-11-2023 10:15-0500 Body temperature 98 [degF] [facility] Red Shammo Work Phone: [facility] Encounters Encounter Date Encounter Type Care Provider Facility Start: 08-11-2023 End: 08-11-2023 Emergency department patient visit Wendy Frazier Facility:[facility] Start: 08-11-2023 End: 08-11-2023 Emergency department patient visit [facility] Red Shammo Work Phone: [facility] Work Phone: Start: 11-06-2022 End: 11-07-2022 ambulatory RED SHAMMO Facility:[facility] Start: 07-03-2022 End: 07-03-2022 ambulatory RED SHAMMO Facility:[facility] Start: 07-01-2022 End: 07-02-2022 ambulatory RED SHAMMO Facility:[facility] Start: 06-25-2022 End: 06-26-[address] ANGEL LUIS ALEJANDRA Facility:[facility] Start: 04-17-2022 Encounter for genera l adult medical examination without abnormal findings RED SHAMMO [facility] Start: 04-15-2022 End: 04-16-2022 ambulatory RED SHAMMO Facility:[facility] Start: 04-15-2022 End: 04-16-2022 Encounter for general adult medical examination without abnormal findings RED SHAMMO Facility:[facility] Start: 04-03-2022 End: 04-04-[address] DOCTOR FRAIRE Facility:[facility] Plan of Treatment Date Care Activity Detail Author Start: 12-12-2022 ambulatory Ambulatory Facility:[facility] Patient Education Nausea and Vom iting, Adult (DC) [facility] Work Phone: Patient referral [facility] Work Phone: Payers Date Payer Category Payer Self-pay 2023 Unknown [id number] 1992 Unknown [id number] 1992 Unknown [id number] 1992 Unknown [id number] 1992 Unknown [id number] 1992 Unknown [id number] 1992 Unknown [id number] 1992 Unknown [id number] 1959 Self-pay [id number] 1959 Unknown [id number] [facility] [employer] [id number] Unknown [id number] Social History Date Type Detail Facility Start: [facility]11[facility]23 [facility] Start: 1990 Sex Assigned At Female F [facility] Evaluation note Note Date & Type Note Facility Evaluation note No assessment information availa ble [facility] Work Phone: Hospital Discharge instructions [...] you develop any worsening or concerning symptoms. [facility] Work Phone: Summary Purpose Family [...] DATE CREATED AUTHOR 'S ORGANIZ ATION 08/21/2023 [facility] Care Teams (unrecognized sec tion and content) Team Status: Active Member Role Status Dates [facility] Primary Care Provider Active Team Status: Inactive Member Role Status Dates [facility] Primary Care Provider Active Start: August [...] BE BASED ON THE PRIMARY CLINICAL RECORDS. [employer] provides no warranty or guarantee of the accuracy or completeness of information in this document.
== END 2024-03-02 10:48 | disposition home or self-care (01) ==
LOC: US 10:47
PROVIDERS: PCP Nurse Practitioner; Visit Provider Nurse Practitioner
DX: E06.3 Autoimmune thyroiditis (principal); E04.1 Nontoxic single thyroid nodule
CPT/HCPCS: 76536

== ENCOUNTER 2024-10-11 11:04 | Outpatient (OUT) | payer BC, SELFPAY ==
--- NOTE | 2024-10-11 11:10 | XR_ITS ---
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 No injury. COMPARISON: None AP, lateral and oblique views were obtained. There is no evidence of fracture or dislocation. There are no significant soft tissue abnormalities. XR/XR foot LT min 3V IMPRESSION: NO ACUTE BONY FINDINGS. Impression dictated by: Keshia Maher M.D.10/11/2024 11:44 AM Dictation Location: [place] [address] Electronically authenticated by: [id number] Y Date: 10/11/2024 11:44
== END 2024-10-11 11:05 | disposition home or self-care (01) ==
LOC: RAD 11:06
PROVIDERS: PCP Nurse Practitioner; Visit Provider Nurse Practitioner
DX: M79.672 Pain in left foot (principal)
CPT/HCPCS: 73630